=== PATIENT | female | born 1940 | race Caucasian/White ===

== ENCOUNTER 2017-02-04 15:38 | Inpatient (IN) | payer MEDICARE ==
[~2017-02-04] VITALS: Ht 165.1 cm; Wt 59.0 kg
[2017-02-04 17:16] LABS: BASOPHILS 0.2 % (0-2); EOSINOPHILS 0.2 % (0-7); HEMATOCRIT 38.6 % (42.0-54.0); HEMOGLOBIN 13.7 g/dL (13.5-17.5); IMMATURE GRANULOCYTES 1.9 % (0-5); LYMPHOCYTES 12.7 % (15-50); MCH 30.9 pg (26.0-34.0); MCHC 35.5 g/dL (31.0-37.0); MCV 86.9 fL (80.0-100.0); MEAN PLATELET VOLUME 8.9 fL (7.4-10.4); MONOCYTES 13.4 % (2-11); NEUTROPHILS 71.6 % (40-80); PLATELET COUNT 346 10x3/uL (130-400); RBC 4.44 10x6/uL (4.20-6.10); RDW 12.5 % (11.5-14.5); WBC 12.9 10x3/uL (4.8-10.8)
[2017-02-04 17:36] LABS: ALBUMIN 2.7 g/dL (3.4-5.0); ALKALINE PHOSPHATASE 69 U/L (46-116); ALT (SGPT) 16 U/L (10-68); BILIRUBIN - TOTAL 0.88 mg/dL (0.2-1.3); CALC OSMOLALITY 257 mosm/kg (275-300); CALCIUM 9.1 mg/dL (8.5-10.1); CARBON DIOXIDE 27.3 mmol/L (21.0-32.0); CHLORIDE - SERUM 88 mmol/L (98-107); CREATININE - SERUM 0.9 mg/dL (0.6-1.3); GLUCOSE 100 mg/dL (74-106); PROTEIN - SERUM 7.5 g/dL (6.4-8.2); SODIUM 128 mmol/L (136-145); UREA NITROGEN 14 mg/dL (7-18); eGFR NON AFRICAN AMERICAN 87 mL/min (90-120)
[2017-02-04 17:37] LABS: POTASSIUM - SERUM 2.8 mmol/L (3.5-5.1)
--- NOTE | 2017-02-05 00:16 | NUR ---
REC'D TO ROOM 2217 FROM ER DEPT A 76 Y/O W/FE PER SERVICES DR. CANO WITH DX COPD AND PNEUMONIA. SALINE LOCK PATENT RT ARM SITE CLEAR. ASSESSMENT PER ADMIT PACKET. UP AD MEI TO BR VOIDS WELL.
[2017-02-05 01:10] VITALS: BP 121/54; BMI 21.6
[2017-02-05] MEDS ORDERED: PLAVIX75 MG PO (01:22)
[2017-02-05] MEDS ORDERED: BAYER CHEWABLE81 MG PO (01:23)
[2017-02-05] MEDS ORDERED: ZOLOFT100 MG PO (01:23)
[2017-02-05] MEDS ORDERED: METOPROLOL-HCT1 EACH PO (01:24)
[2017-02-05] MEDS ORDERED: ACETAMINOPHEN325 MG PO (01:25)
--- NOTE | 2017-02-05 02:00 | NUR ---
EYES CLOSED RESPIRATIONS WITH EASE AND UNLABORED. O2 ON 2L/M PER NC. HOB UP 30 DEGREES. SR UP X2 CALL LIGHT WITHIN REACH.
--- NOTE | 2017-02-05 03:52 | NUR ---
EYES CLOSED RESPIRATIONS WITH EASE AND UNLABORED. BEDSIDE UPDRAFT GIVEN TONIGHT.
--- NOTE | 2017-02-05 06:29 | NUR ---
DR. CANO HERE TO EVALUATE PATIENT.
[2017-02-05 07:12] LABS: ANION GAP 14.5 mmol/L (8-16); BASOPHILS 0.2 % (0-2); CALCIUM 8.6 mg/dL (8.5-10.1); CARBON DIOXIDE 26.9 mmol/L (21.0-32.0); CREATININE - SERUM 0.8 mg/dL (0.6-1.3); EOSINOPHILS 0.2 % (0-7); HEMATOCRIT 37.5 % (36.0-48.0); HEMOGLOBIN 13.3 g/dL (12-16); IMMATURE GRANULOCYTES 1.7 % (0-5); LYMPHOCYTES 14.7 % (15-50); MCH 31.1 pg (26.0-34.0); MCHC 35.5 g/dL (31.0-37.0); MCV 87.8 fL (80.0-100.0); MEAN PLATELET VOLUME 8.8 fL (7.4-10.4); MONOCYTES 15.3 % (2-11); NEUTROPHILS 67.9 % (40-80); PLATELET COUNT 371 10x3/uL (130-400); RBC 4.27 10x6/uL (4.00-5.40); RDW 12.7 % (11.5-14.5); WBC 9.8 10x3/uL (4.8-10.8)
[2017-02-05 07:13] LABS: POTASSIUM - SERUM 3.4 mmol/L (3.5-5.1)
--- NOTE | 2017-02-05 08:35 | NUR ---
PATIENT RESTING IN THE BED. PATIENT IS AWAKE, ALERT, AND ORIENTED X4. NO COMPLAINTS OF PAIN AT PRESENT TIME. ASSESSMENT COMPLETED. SEE FLOWSHEET FOR ANY DETAILS. SCHEDULED MORNING MEDICATIONS GIVEN TO PATIENT. PATIENT TOLERATED WELL. PATIENT DENIES ANY NEEDS AT PRESENT TIME. CALL LIGHT IN PATIENT'S REACH. WILL MONITOR PATIENT FOR ANY NEEDS.
[2017-02-05 09:07] VITALS: BP 139/67
[2017-02-05 12:51] VITALS: BP 123/78
[2017-02-05 14:04] VITALS: Ht 165.1 cm; Wt 59.0 kg
--- NOTE | 2017-02-05 14:24 | NUR ---
PATIENT RESTING IN BED WITH HER EYES CLOSED. PATIENT AWAKENS EASILY TO VERBAL STIMULI. DAUGHTER AT PATIENT'S BEDSIDE. SCHEDULED SOLU-MEDROL 40 MG IV GIVEN TO PATIENT. PATIENT TOLERATED WELL. PATIENT DENIES ANY NEEDS AT PRESENT TIME. CALL LIGHT IN PATIENT'S REACH. WILL MONITOR PATIENT FOR ANY NEEDS.
--- NOTE | 2017-02-05 16:00 | NUR ---
SCD'S PLACED ON PATIENT'S BILATERAL LOWER EXTREMITIES.
[2017-02-05 17:07] VITALS: BP 125/69
[2017-02-05 20:00] VITALS: BP 98/64
--- NOTE | 2017-02-05 20:00 | NUR ---
ASSESSMENT PER FLOWSHEET. IV PATENT RT FOREARM OF D5NS W/20MEQ KCL INFUSING AT 75CC'S/HR SITE CLEAR. UP WITH HELP TO BR VOIDS WELL. O2 ON 2L/M PER NC.
--- NOTE | 2017-02-05 21:00 | NUR ---
MEDS GIVEN PER MAR.
--- NOTE | 2017-02-05 23:25 | NUR ---
EYES CLOSED RESPIRATIONS WITH EASE AND UNLABORED.
[2017-02-06] VITALS: BP 110/66
--- NOTE | 2017-02-06 02:00 | NUR ---
AWAKE UP WITH HELP TO RY VOIDS WELL ASSISTED BACK TO BED.
[2017-02-06 04:00] VITALS: BP 119/76
--- NOTE | 2017-02-06 04:30 | NUR ---
RESTING QUIETLY DENIES NEEDS.
[2017-02-06 05:15] LABS: BASOPHILS 0.1 % (0-2); EOSINOPHILS 0 % (0-7); HEMATOCRIT 34.8 % (36.0-48.0); HEMOGLOBIN 12.1 g/dL (12-16); IMMATURE GRANULOCYTES 0.9 % (0-5); LYMPHOCYTES 6.6 % (15-50); MCH 30.3 pg (26.0-34.0); MCHC 34.8 g/dL (31.0-37.0); MCV 87.2 fL (80.0-100.0); MEAN PLATELET VOLUME 8.6 fL (7.4-10.4); NEUTROPHILS 84.4 % (40-80); PLATELET COUNT 392 10x3/uL (130-400); RBC 3.99 10x6/uL (4.00-5.40); RDW 12.5 % (11.5-14.5)
[2017-02-06 05:21] LABS: WBC 13.9 10x3/uL (4.8-10.8)
[2017-02-06 05:51] LABS: CALC OSMOLALITY 267 mosm/kg (275-300); CALCIUM 8.5 mg/dL (8.5-10.1); CARBON DIOXIDE 27.5 mmol/L (21.0-32.0); CHLORIDE - SERUM 97 mmol/L (98-107); CREATININE - SERUM 0.7 mg/dL (0.6-1.3); POTASSIUM - SERUM 3.9 mmol/L (3.5-5.1); SODIUM 132 mmol/L (136-145); UREA NITROGEN 10 mg/dL (7-18); eGFR NON AFRICAN AMERICAN 86 mL/min (90-120)
[2017-02-06 06:03] LABS: GLUCOSE 176 mg/dL (74-106)
--- NOTE | 2017-02-06 06:47 | NUR ---
MEDS GIVEN PER MAR. DENIES NEEDS.
--- NOTE | 2017-02-06 07:59 | NUR ---
AWAKE AND ALERT. ORIENTED X3. NO C/O AT THIS TIME. LUNGS ARE DIMINISHED IN LEFT LOWER LOBE AND FAINT CRACKLES NOTED TO RIGHT LOWER LOBES. SKIN IS INTACT WITHOUT REDNESS. IV TO RIGHT FOREARM IS PATNET WITHOUT REDNESS AT INSERTION SITE. SCD'S OFF AT THIS TIME. DENIES NEEDS. REPORTS OCCASSIONALLY PRODUCTIVE COUGH WITH WHITISH SPUTUM.
[2017-02-06 08:48] VITALS: BP 112/73
--- NOTE | 2017-02-06 10:30 | NUR ---
UP TO SHOWER WITH SET UP ASSISTANCE. NO C/O AT THIS TIME.
--- NOTE | 2017-02-06 12:30 | NUR ---
REGULAR LUNCH TRAY SERVED IN ROOM. FEEDS SELF WITHOUT C/O DISCOMFORT.
[2017-02-06 13:11] VITALS: BP 100/71
--- NOTE | 2017-02-06 14:00 | NUR ---
AMBULATED IN HALLWAY WITH FAMILY. NO INCREASED SOB NOTED WITH ACTIVITY.
--- NOTE | 2017-02-06 16:00 | NUR ---
REQUESTED AND GIVEN 650MG TYLENOL PO FOR C/O HEADACHE. WILL MONITOR.
[2017-02-06 16:21] VITALS: BP 122/74
--- NOTE | 2017-02-06 18:35 | NUR ---
ATE ALL OF SUPPER SHE WANTED. DENIES NEEDS. NO CHANGES NOTED.
[2017-02-06 20:00] VITALS: BP 128/85
--- NOTE | 2017-02-06 21:10 | NUR ---
REST IN BED AND WATCH TV.
--- NOTE | 2017-02-06 23:33 | NUR ---
LYING ON LEFT SIDE, HOB 20 DEGREE, CALL LIGHT IN REACH.
--- NOTE | 2017-02-07 01:30 | NUR ---
REST IN BED, CALL LIGHT IN REACH.
--- NOTE | 2017-02-07 02:40 | NUR ---
ASSESSED, PT IS ASLEEP CURLED UP ON SIDE. RESPIRATIONS EASY AND NO DISTRESS NOTED. THE BED IS LOW, RAILS UP X'S 2 WITH THE CALL LIGHT AT HAND.
--- NOTE | 2017-02-07 04:35 | NUR ---
REST IN BED, CALL LIGHT IN REACH.
--- NOTE | 2017-02-07 06:05 | NUR ---
IV INFILTRATED, RESTART IV, GOOD BLOOD RETURN.PT TOLERATED WELL.
[2017-02-07 06:18] LABS: BASOPHILS 0.1 % (0-2); EOSINOPHILS 0 % (0-7); HEMOGLOBIN 11.9 g/dL (12-16); IMMATURE GRANULOCYTES 0.9 % (0-5); LYMPHOCYTES 6.4 % (15-50); MCH 30.7 pg (26.0-34.0); MEAN PLATELET VOLUME 8.6 fL (7.4-10.4); MONOCYTES 5.9 % (2-11); NEUTROPHILS 86.7 % (40-80); PLATELET COUNT 393 10x3/uL (130-400); RBC 3.87 10x6/uL (4.00-5.40); RDW 13.1 % (11.5-14.5); WBC 16.7 10x3/uL (4.8-10.8)
[2017-02-07 06:22] LABS: MCV 90.4 fL (80.0-100.0)
[2017-02-07 06:33] LABS: ANION GAP 14.1 mmol/L (8-16); CALCIUM 8.7 mg/dL (8.5-10.1); CARBON DIOXIDE 25.5 mmol/L (21.0-32.0); CREATININE - SERUM 0.8 mg/dL (0.6-1.3); POTASSIUM - SERUM 4.6 mmol/L (3.5-5.1)
--- NOTE | 2017-02-07 08:45 | NUR ---
AWAKE AND ALERT. ORIENTED X3. LUNGS ARE CLEAR THIS AM WITH FAINT CRACKLES, NON PRODUCTIVE COUGH NOTED. SKIN IS INTACT WITHOUT REDNESS. IV TO LEFT FOREARM IS PATNET WITHOUT REDNESS AT ISNERTION SITE. DENIES NEEDS. SITTING UP ON SIDE OF BED EATING BREAKFAST.
[2017-02-07 09:38] VITALS: BP 123/66
--- NOTE | 2017-02-07 10:00 | NUR ---
ATE MOST OF BREAKFAST SITTING UP ON SIDE OF BED.
[2017-02-07] MEDS ORDERED: IPRAT-ALBUT 0.5-3 ML INH (10:20)
[2017-02-07] MEDS ORDERED: LOPRESSOR25 MG PO (10:20)
[2017-02-07] MEDS ORDERED: LEVAQUIN750 MG PO (10:21)
[2017-02-07] MEDS ORDERED: STERAPRED DS 1210 MG PO (10:21)
[2017-02-07] MEDS ORDERED: COMBIVENT RESPIM4 GM INH (10:23)
[2017-02-07 13:41] VITALS: BP 138/70
--- NOTE | 2017-02-07 16:35 | NUR ---
DISCHARGED TO HOME AMBULATORY WITH FAMILY. DISCHARGE INSTRUCTIONS GIVEN BOTH VERBALLY AND WRITTEN. ALL QUESTIONS ANSWERED. PATIENT VERBALIZED UNDERSTANDING OF SAME. NEEDED PRESCRIPTIONS ESCRIBED TO PHARMACY OF CHOICE. ALL BELONGINGS WITH PATIENT.
--- NOTE | 2017-02-07 19:11 | NUR ---
LATE ENTRY 1230 PATIENT FOR DISCHARGE TO HOME. WILL BE RETURNING TO HER OWN HOME IN [place], [place]. ADDRESS CORRECTED [address] PHONE NUMBER CORRECTED- [phone]. FAXED CORRECTIONS TO ADMISSION. PATIENT HAD NEBULIZER ORDERED. HAS NO PREFERRED PROVIDER. REID HAD A CALL ALREADY TO [facility], [place]. SPOKE WITH MRASHA. HE [place] [facility] [place] FA[place] MD ORDER, CORRECTED FACE SHEET AND H/P. NEB MEDICATIONS OBTAINED FOR 3 DAYS FROM PHARMACY UNTIL CAN ORDER PATIENT'S MEDICATIONS ON THURSDAY. [place] MARSHA LOUIE, DELIVERED THE NEBULIZER TO THE BEDSIDE THIS LATE PM. SHADI RODRIGUEZ PROVIDED TRANSPORTATION TO HOME.
--- NOTE | 2017-02-09 06:51 | HP ---
PATIENT: JIMI ADLER MEDICAL RECORD: [id number] ACCOUNT: [id number] LOCATION:D.[id number] : 38 ADMISSION DATE: 02/04/17 HISTORY AND PHYSICAL EXAMINATION DATE OF ADMISSION: 02/04/2017 CHIEF COMPLAINT: Shortness of breath, fever, flu-like symptoms. HISTORY OF PRESENT ILLNESS: A 76-year-old female who presented to the Emergency Room brought by her daughter. Apparently, the patient had been a patient of Dr. Roper, who apparently is retiring. She had also been seen by Dr. Awad in [place], apparently was told she had the flu earlier this week, but if her condition worsened to present to the Emergency Room. She presented to the Emergency Room having no PCP. She is admitted to the service on unassigned medicine. PAST MEDICAL HISTORY: Her past history is significant. She has been a long-time smoker. She has had carotid endarterectomy on the left. She has had IA with stents placed, hyperlipidemia, hypertension, depression. She is G3, P3. SOCIAL HISTORY: The patient was born and raised in [place]. She currently lives with her daughter in [place]. She is a . HABITS: The patient states she is a one-half to one pack per day smoker most of her adult life. She denies any current ethanol use or abuse, but she states in the past she had been a drinker. She currently is unemployed. MEDICATIONS: Include Cipro 500 mg p.o. b.i.d., Plavix 75 mg once a day, aspirin 81 mg once a day, Zoloft 100 mg once a day, Flexeril 10 mg p.r.n., Lopressor/hydrochlorothiazide 100/25 once daily. ALLERGIES: HER ALLERGIES ARE NUMEROUS. STANAM INHIBITORS, ALEVE, LYRICA, PENICILLIN, SULFA, TETRACYCLINE, AND CODEINE. REVIEW OF SYSTEMS: CONSTITUTIONAL: She denies any headaches, seizures, or syncope. She denies change in visual or auditory acuity. PULMONARY: She does report having cough and congestion. CARDIOVASCULAR: She has had no chest pain, palpitation, PND, orthopnea. GASTROINTESTINAL: No chronic nausea, vomiting, melena, or hematochezia. GENITOURINARY: No urgency, frequency, or dysuria. PHYSICAL EXAMINATION: VITAL SIGNS: Her weight is 130 pounds, BMI is 21.6, temperature 99, pulse was 114, respirations 20, blood pressure 106/78, O2 sat was 92% on room air. HEENT: Her head is normocephalic. No lesions. Ears: TMs clear. Eyes: Pupils equal, round, reactive to light. Her extraocular movements are intact. Her nasal cavity, oral cavity, oropharynx clear. NECK: Supple. There is no adenopathy. HEART: Tachycardic. LUNGS: She has some bibasilar rales. Some minimal end-expiratory wheezes. ABDOMEN: Soft. Bowel sounds positive. EXTREMITIES: Lower extremities have no edema. HISTORY AND PHYSICAL [id number] JIMI ADLER IMAGING: The patient had a chest x-ray. Chest x-ray showed minimal patchy air disease in the right lung base, which might develop into pneumonia. Emphysematous changes were noted as well. LABORATORY DATA: She had a white count of 12.9, hemoglobin of 13.7, hematocrit of 38.6, platelets are 346. She has a sodium of 128, potassium 2.8, chloride is low at 88, BUN is 14, creatinine is 0.9, and blood sugar is 87. ASSESSMENT: Chronic obstructive pulmonary disease exacerbation, possible pneumonia, hyponatremia, hypokalemia, history of hypertension, depression, arteriosclerotic heart disease, history of left carotid endarterectomy. PLAN: The patient will be admitted. She will be given updraft therapy as well as O2 supplementation. Sputum cultures and blood cultures will be obtained. The patient placed on Levaquin 750 mg IV every 24 hours. Also, we will start her on albuterol and Atrovent updrafts every 4 hours, Anoro 1 puff a day, Solu-Medrol 60 mg every 8 hours. We will continue to evaluate. TRANSINT:[id number] Voice Confirmation ID: [id number] DOCUMENT ID: [id number] DARLENE CANO MD at 0651 CC: [id number] DICTATION DATE: 02/05/17 0643 HELPDESK TECHNICIAN: 02/05/17 0757 DIS IN 02/07/17 [facility] [address] [place] [address]
--- NOTE | 2017-02-09 13:47 | NUR ---
TC TO PATIENT REGARDING NEBULIZER AND IF SHE HAD ANY QUESTIONS OR NEEDS. SPOKE WITH HER DAUGHTER, SHADI. SHE NEEDED THE LOCAL PHONE NUMBER FOR [facility]. GAVE HER THE PHONE NUMBER. TC TO MICHAEL, THE BORING MACHINE OPERATOR HORIZONTAL, TO FOLLOW UP ON REFERRAL.
== END 2017-02-07 16:36 | disposition home or self-care (01) | DRG 190 ==
LOC: D.ER 15:38 → D.ICU 19:40 → D.MS 19:40 → EDSEX 19:40 → D.MS 02-07 16:36
PROVIDERS: Emergency Medicine; Family Medicine; ADMIT Family Medicine
DX: J43.9 Emphysema, unspecified (principal); J18.9 Pneumonia, unspecified organism; E87.1 Hypo-osmolality and hyponatremia; E87.6 Hypokalemia; I10 Essential (primary) hypertension; F32.9 Major depressive disorder, single episode, unspecified; I25.10 Atherosclerotic heart disease of native coronary artery without angina pectoris; F17.200 Nicotine dependence, unspecified, uncomplicated

== ENCOUNTER → 2017-05-26 17:34 | Outpatient (CLI) | payer MEDICARE ==
[2017-02-05 14:04] VITALS: BMI 21.6
[~2017-05-26 17:34] MED LIST: ACETAMINOPHEN325 MG PO; BAYER CHEWABLE81 MG PO; COMBIVENT RESPIM4 GM INH; IPRAT-ALBUT 0.5-3 ML INH; LEVAQUIN750 MG PO; LOPRESSOR25 MG PO; METOPROLOL-HCT1 EACH PO; PLAVIX75 MG PO; STERAPRED DS 1210 MG PO; ZOLOFT100 MG PO
== END | disposition home or self-care (01) ==
LOC: D.MAMMO 15:00
DX: Z12.31 Encounter for screening mammogram for malignant neoplasm of breast (principal)

== ENCOUNTER → 2017-07-31 22:00 | Outpatient (CLI) | payer MEDICARE ==
[2017-02-05 14:04] VITALS: BMI 21.6
== END | disposition home or self-care (01) ==
LOC: D.MAMMO 10:30
DX: R92.8 Other abnormal and inconclusive findings on diagnostic imaging of breast (principal)

== ENCOUNTER → 2017-08-14 06:03 | Outpatient (CLI) | payer MEDICARE ==
[2017-02-05 14:04] VITALS: BMI 21.6
== END | disposition home or self-care (01) ==
LOC: D.MAMMO 06:03 → D.US 09:00
DX: R92.8 Other abnormal and inconclusive findings on diagnostic imaging of breast (principal)

== ENCOUNTER 2017-09-29 06:08 | Day surgery (SDC) | payer MEDICARE ==
[~2017-09-29] VITALS: Ht 165.1 cm; Wt 59.5 kg
--- NOTE | ~2017-09-29 | OP ---
PATIENT NAME: JIMI ADLER MEDICAL RECORD: [id number] :38 LOCATION:[facility] ADMISSION DATE: SURGEON: SILVIO SOLANO MD DATE OF OPERATION: 09/29/2017 PREOPERATIVE DIAGNOSES: 1. Invasive ductal carcinoma of the right breast. 2. Ductal carcinoma in situ of the left breast. 3. Hypertension. 4. Chronic obstructive pulmonary disease. 5. Coronary artery disease. POSTOPERATIVE DIAGNOSES: 1. Invasive ductal carcinoma of the right breast. 2. Ductal carcinoma in situ of the left breast. 3. Hypertension. 4. Chronic obstructive pulmonary disease. 5. Coronary artery disease. PROCEDURES: 1. Bilateral simple mastectomies. 2. Right sentinel lymph node biopsy. SURGEON: Silvio Solano MD EXTRACTOR AND WRINGER OPERATOR: Betsy Young APRN REPORT OF PROCEDURE: The patient's chest was prepped and draped in sterile fashion. An ovoid incision was made around the right nipple areolar complex in a transverse fashion. Electrocautery was used to dissect through the subcutaneous tissues, elevating flaps in all directions. Once the breast was released from the skin in all directions, we continued our dissection up to the clavicle, to the mid sternum, down to the rectus muscles and laterally to the axilla. We then elevated the breast off of the pectoral tissues. Once this was done, then the breast was inspected and sent off for permanent specimen. We then approached the patient's right axilla. A sentinel lymph node was removed times 1, it had a reading of a 4500. The remainder of the axilla had no signs of any elevated radio nucleotide. The patient's right chest was irrigated out with sterile water. A 10 flat MIRANDA drains were then inserted in the right chest times [address] with 3-0 nylons. We then approached the left chest. An ovoid incision was made in a transverse fashion around the left nipple areolar complex. The breast was elevated off of the patient's skin flaps in all directions. We continued our dissection superiorly to the clavicle, medially to the mid sternum, inferiorly to the rectus and laterally to the axilla. Once this was extended out in all directions, then the breast was elevated off of the patient's pectoral muscle. This was then sent off for permanent specimen. We inspected the area and assured there was no bleeding and any that was found was treated with either electrocautery or with suture ligation. The wound was then irrigated out with sterile water. A 10 flat MIRANDA drains times 2 were inserted in the subcutaneous tissues, then placed over the chest times 2. These were sutured into place with 3-0 nylons. We then reapproximated the subcutaneous tissues with multiple interrupted 3-0 Vicryls and the skin was closed with codie. COMPLICATIONS: None. OPERATIVE REPORT [id number] JIMI ADLER CONDITION: Stable. ANESTHESIA: General endotracheal. BLOOD LOSS: 100 mL. TRANSINT:[id number] Voice Confirmation ID: [id number] DOCUMENT ID: [id number] SILVIO SOLANO MD at 1418 CC: JACK PANCHAL M.D., KAREN BONDS MD and DARLENE CANO [id number] DICTATION DATE: 09/29/17 1419 HEALTH CARE FACILITY ADMINISTRATOR: 09/29/17 1512 [facility] 09/30/[address] [address]
[~2017-09-29 06:08] MED LIST changes: +BUPROPION HCL150 M1 PO; +COZAAR100 MG PO; +HYDROCHLOROTH12.5 M1 PO; +LEXAPRO10 MG
[2017-09-29 06:28] LABS: BASOPHILS 0.6 % (0-2); EOSINOPHILS 3.7 % (0-7); HEMOGLOBIN 14.5 g/dL (12-16); IMMATURE GRANULOCYTES 0.2 % (0-5); LYMPHOCYTES 40.3 % (15-50); MCH 30.1 pg (26.0-34.0); MCHC 34.5 g/dL (31.0-37.0); MCV 87.1 fL (80.0-100.0); MEAN PLATELET VOLUME 9.2 fL (7.4-10.4); MONOCYTES 13.6 % (2-11); NEUTROPHILS 41.6 % (40-80); RBC 4.82 10x6/uL (4.00-5.40); RDW 14.1 % (11.5-14.5); WBC 6.3 10x3/uL (4.8-10.8)
[2017-09-29 06:43] LABS: PLATELET COUNT 212 10x3/uL (130-400)
[2017-09-29] MEDS ORDERED: LOPRESSOR25 MG PO (09:39)
[2017-09-29] MEDS ORDERED: BUPROPION HCL150 M1 PO (09:40)
[2017-09-29 09:41] VITALS: BMI 21.8
[2017-09-29 16:08] VITALS: BP 120/61
[2017-09-29 17:19] VITALS: Ht 165.1 cm; Wt 59.5 kg
[2017-09-29 18:00] VITALS: BP 122/68
[2017-09-29 19:09] VITALS: BP 131/64
[2017-09-29 22:10] VITALS: BP 139/66
[2017-09-30 03:34] VITALS: BP 132/67
[2017-09-30 06:32] LABS: BASOPHILS 0.2 % (0-2); EOSINOPHILS 0.1 % (0-7); HEMATOCRIT 36.2 % (36.0-48.0); HEMOGLOBIN 11.9 g/dL (12-16); IMMATURE GRANULOCYTES 0.1 % (0-5); LYMPHOCYTES 23.1 % (15-50); MCHC 32.9 g/dL (31.0-37.0); MCV 88.3 fL (80.0-100.0); MEAN PLATELET VOLUME 9.6 fL (7.4-10.4); MONOCYTES 14.7 % (2-11); NEUTROPHILS 61.8 % (40-80); PLATELET COUNT 192 10x3/uL (130-400); RDW 14.1 % (11.5-14.5)
[2017-09-30 06:35] LABS: WBC 8.2 10x3/uL (4.8-10.8)
[2017-09-30 08:05] VITALS: BP 146/63
[2017-09-30 11:50] VITALS: BP 141/81
[2017-09-30] MEDS ORDERED: DILAUDID2 MG PO (13:16)
== END 2017-09-30 14:45 | disposition home or self-care (01) ==
LOC: D.PAN 06:08 → D.LD 06:08 → D.NM 07:30 → D.PAN 07:30 → D.LD 15:30 → D.SDCHOLD 18:49 → D.LD 18:50 → D.PAN 09-30 14:45
PROVIDERS: Anesthesiology; Surgery
DX: C50.911 Malignant neoplasm of unspecified site of right female breast (principal); D05.12 Intraductal carcinoma in situ of left breast; I10 Essential (primary) hypertension; J44.9 Chronic obstructive pulmonary disease, unspecified; I25.10 Atherosclerotic heart disease of native coronary artery without angina pectoris; Z01.812 Encounter for preprocedural laboratory examination

== ENCOUNTER → 2017-12-02 10:16 | Outpatient (CLI) | payer MEDICARE ==
[2017-09-29 17:19] VITALS: BMI 21.8
[~2017-12-02 10:16] MED LIST changes: +DILAUDID2 MG PO
== END | disposition home or self-care (01) ==
LOC: D.CT 10:16
DX: I65.23 Occlusion and stenosis of bilateral carotid arteries (principal)

== ENCOUNTER 2018-03-04 07:30 | Inpatient (IN) | payer MEDICARE ==
[2018-03-01 15:33] LABS: APTT 26.2 SECONDS (22.8-39.4); INR 0.93 (0.85-1.17)
[2018-03-01 15:35] LABS: APPEARANCE CLEAR (CLEAR); BILIRUBIN NEGATIVE (NEGATIVE); COLOR YELLOW (YELLOW); GLUCOSE NEGATIVE (NEGATIVE); KETONE NEGATIVE (NEGATIVE); NITRITE NEGATIVE (NEGATIVE); PROTEIN NEGATIVE (NEGATIVE); UROBILINOGEN NORMAL (NORMAL)
[2018-03-01 15:38] LABS: ALBUMIN 3.7 g/dL (3.4-5.0); ANION GAP 12.6 mmol/L (8-16); BILIRUBIN - TOTAL 0.54 mg/dL (0.2-1.3); CALCIUM 8.7 mg/dL (8.5-10.1); CARBON DIOXIDE 29.3 mmol/L (21.0-32.0); POTASSIUM - SERUM 3.9 mmol/L (3.5-5.1); PROTEIN - SERUM 7.7 g/dL (6.4-8.2)
[2018-03-01 16:45] LABS: HEMATOCRIT 41.2 % (36.0-48.0); HEMOGLOBIN 13.6 g/dL (12-16); MCH 27.6 pg (26.0-34.0); MCV 83.7 fL (80.0-100.0); MEAN PLATELET VOLUME 9.7 fL (7.4-10.4); RBC 4.92 10x6/uL (4.00-5.40); RDW 15.6 % (11.5-14.5); WBC 6.1 10x3/uL (4.8-10.8)
[2018-03-04] VITALS (29 sets, daily range): BP systolic 110–141; BP diastolic 43–88; BMI 22.6
[~2018-03-04] VITALS: Ht 165.1 cm; Wt 59.1 kg
--- NOTE | ~2018-03-04 | MORECARE ---
CASE MANAGEMENT DISCHARGE SUMMARY PATIENT: JIMI ADLER UNIT: [id number] ADM DATE: 03/04/18 AGE: 77 : 39 SEX: F ROOM/BED: D[facility] AUTHOR: [place] PHYSICIAN: REFERRING PHYSICIAN: ELENI MCLEAN MD DATE OF SERVICE: 03/05/18 Discharge Plan Patient Name: JIMI ADLER [facility] [facility] 1940 Planned Disposition: Home Anticipated Discharge Date: Discharge Date: Expected LOS: Initial Reviewer: [email or web address] Initial Review Date: 03/05/2018 Generated: 03/05/18 5:24 pm DCPIA - Discharge Planning Initial Assessment Updated by [email or web address]: Irais Aguilar on 03/05/18 4:23 pm * Is the patient Alert and Oriented? Yes * How many steps to enter\exit or inside your home? * PCP RACHAEL * Pharmacy [facility] * Preadmission Environment Home Alone * ADLs Independent * Other Equipment WALKER, CANE, W/C, BSC * List name and contact numbers for known caregivers / representatives who currently or will assist patient after discharge: SHADI Cardona [facility] -[phone] * Verbal permission to speak to the caregivers and representatives has been obtained from the patient. Yes * Community resources currently utilized None * Additional services required to return to the preadmission environment? No * Can the patient safely return to the preadmission environment? Yes * Has this patient been hospitalized within the prior 30 days at any hospital? No Patient Name: JIMI ADLER Page 11437 at 1624 All edits/amendments must be made on the electronic document DICTATION DATE: 03/05/181622 DIRECTOR OF RESERVATIONS: WADE 03/05/181622 RPT#: [id number] DC DATE: STATUS: ADM IN [facility] [address] [place] [address] END OF REPORT
--- NOTE | ~2018-03-04 | HP ---
PATIENT: JIMI ADLER MEDICAL RECORD: [id number] ACCOUNT: [id number] LOCATION:[facility] : 38 ADMISSION DATE: 03/04/18 PCP: TED MCLEAN MD HISTORY AND PHYSICAL EXAMINATION JIMI Keller (77yo, F) ID# [id number]. Date/Time02/24/2018 01:20RAOAV15 1940Service Dept.[facility]_[place] [facility] ClinicProviderDANIQUETA MCLEAN MDInsuranceMed Primary: [place] Insurance # : [id number] Referring Provider Name : DARLENE CANO Employer Name : UNKNOWN Med Secondary: AARP Insurance # : [id number] Employer Name : RETIRED Prescription: [employer] - This member could not be found in the payer's files. Please verify coverage and all member demographic information. Chief Complaint Carotid stenosis R carotid stenosis Patient's Care Team Referring Provider (): DARLENE CANO: [address] [place] [address], , Medical Oncologist: KAREN BONDS MD: [address] [facility] [address], , General Surgeon: SILVIO ADAMS MD: [address] [place] [address], [place] [address], , Patient's Pharmacies [facility] (ERX): [address], [place] [address], , Vitals BP:102/74 sitting L arm 02/24/2018 01:24 pm 190/94 sitting R arm 02/24/2018 01:27 pmBP Cuff Size:adult 02/24/2018 01:24 pm adult 02/24/2018 01:27 pmHR:60,skips 02/24/2018 01:24 pmHt:5 ft 5 in 02/24/2018 01:16 pmWt:129 lbs 02/24/2018 01:25 pmNotes:some dizziness and lightheadedness 02/24/2018 01:27 pmBMI:21.5 02/24/2018 01:25 pmAllergies Reviewed Allergies CODEINELYRICANAPROXENPENICILLINSPREGABALINTETRACYCLINEMedications Reviewed Medications Aspir-81 81 mg tablet,delayed release Take 1 tablet(s) every day by oral route.02/23/18 enteredKatopal WilsonbuPROPion HCl XL 150 mg 24 hr tablet, extended release TAKE 1 TABLET BY MOUTH EVERY DAY THANK YOU02/17/18 filledsurescriptsescitalopram 10 mg tablet TAKE 1 TABLET BY MOUTH EVERY DAY THANK YOU02/17/18 filledsurescriptshydroCHLOROthia zide 12.5 mg capsule TAKE 1 CAPSULE BY MOUTH EVERY DAY THANK YOU02/17/18 nefxgiyrgadsfnngzwkujuffjo11/10 /18 Bebe Adams MDletrozole 2.5 mg tablet TAKE 1 TABLET BY MOUTH EVERY DAY THANK YOU02/17/18 filledsurescriptsmetoprolol succinate ER 25 mg capsule sprinkle, ext. release 24 hr Take by oral route.09/09/17 Maverick Herronmetoprolol succinate ER 25 mg tablet,extended release 24 hr TAKE 1 TABLET BY MOUTH EVERY DAY THANK YOU02/17/18 filledsurescriptsPlavix 75 mg tablet Take 1 tablet(s) every day by oral route.02/23/18 [facility] Wilsonpotassium chloride ER 10 mEq tablet,extended release HISTORY AND PHYSICAL [id number] JIMI ADLER TAKE 1 TABLET BY MOUTH EVERY DAY THANK YOU02/17/18 filledsurescriptsrosuvastatin 10 mg tablet TAKE 1 TABLET BY MOUTH EVERY DAY THANK YOU02/17/18 filledsurescriptstamoxifen 20 mg tablet TAKE 1 TABLET BY MOUTH EVERY DAY THANK YOU02/18/18 filledsurescriptstemazepam 15 mg capsule TAKE 1 CAPSULE BY MOUTH ONCE daily at bedtime NEEDED THANK YOU02/17/18 filledsurescriptsProblems Reviewed Problems Primary malignant neoplasm of female breast - Onset: 12/30/2017 Intraductal carcinoma in situ of breast - Onset: 12/30/2017 Hypertensive disorder - Onset: 09/09/2017 Myocardial infarction - Onset: 09/09/2017 Coronary arteriosclerosis - Onset: 09/22/2017 Carotid artery stenosis - Onset: 02/23/2018, Right Chronic obstructive lung disease - Onset: 09/09/2017 Arthritis - Onset: 09/09/2017 Fibromyalgia - Onset: 09/09/2017 Family History Reviewed Family History Father- Cerebrovascular accident ( age: 71)Paternal Grandmother- Heart disease ( age: 84)Paternal Aunt- Malignant tumor of breast - Malignant tumor of breastSocial History Reviewed Social History General Marital status: Smoking Status: Current every day smoker Smoker (1/2 PPD) Surgical History Reviewed Surgical History Other - cardiac stents - Other - Neck, Broken Rib - 1968 Simple mastectomy - 09/29/2017 - BILATERAL Carotid Endarterectomy - 10/31/2014 stents x 4 coronary by Myra [address] gunn 2011 [employer]ANT History (not configured) Obstetric History Reviewed Obstetric History Past Medical History Reviewed Past Medical History High Blood Pressure: Y Documents for Discussion N/A Screening None recorded. HPI Cerebral Vascular Disease Reported by patient. HISTORY AND PHYSICAL [id number] JIMI ADLER Quality: weakness; dizziness Duration: has noted for months Associated Symptoms: no headache; no nausea; no vomiting; no tinnitus; no difficulty speaking; no lethargy; no fever; no chills; no palpitations; no syncope; no loss of consciousness asymptomatic worsening right carotid stenosis, history of left carotid endarte[place] [address] Chaves, history of left subclavian injury after trauma in 1968 and history of left subclavian stent by Dr. Gunn in 2011, occluded. She denies left arm claudication. 100 mm gradient right to left arm. ROS Additionally reports: as reviewed in the chart with the patient and her daughter ROS as noted in the HPI Physical Exam Patient is a 77-year-old female. Constitutional: General Appearance well nourished and developed and healthy-appearing. Level of Distress NAD. Ambulation ambulating normally. Ears, Nose, Throat: Ears grossly normal hearing. Oropharynx: moist mucous membranes. Cardiovascular: Apical Impulse not displaced or no thrill. Heart Auscultation no murmurs, rubs, or gallops and RRR. Arterial Pulses no palpable left brachial or radial pulse. Edema no edema or varicosities. Lungs: Repiratory Effort no dyspnea. Percussion no hyperresonance or dulln ess or flatness. Auscultation no wheezing, rhonchi, or rales / crackles and breathing sounds normal and good air movement. Abdomen: Bowl Sounds normal. Inspection and Palpation no tenderness, guarding, or masses and soft and non-distended. Liver non-tende r and no hepatomegaly. Spleen non-tender and no splenomegaly. Musculoskeletal System: Gait And Stance normal gait and stance. Digits and Nails normal nails and no cyanosis. Joints, Bones, and Muscles normal strength and movement of all extremities. Neurologic: Cranial Nerves grossly intact. Sensation grossly intact. Lymph Nodes: Lymph Nodes no cervical LAD or supraclavicular LAD. Eyes: Lids and Conjunctivae no discharge or pallor and non-injected. Pupils PERRLA. EOM EOMI. Sclera non-icteric. Neck: Neck no masses, enlarged lymph nodes, or carotid bruits and supple and trachea midline; healed left carotid endarterectomy scar and healed scar in the left supraclavicular region. Thyroid no enlargement or nodules and non-tender. Skin: Inspection and Palpation no rash, lesions, ulcers, or jaundice. Assessment / Plan 1. Carotid artery stenosis - Right I65.29: Occlusion and stenosis of unspecified carotid artery CAROTID STENOSIS: CARE INSTRUCTIONS 2. Subclavian artery stenosis I70.8: Atherosclerosis of other arteries HISTORY AND PHYSICAL [id number] JIMI ADLER Discussion Notes right carotid endarterectomy for asymptomatic but progressive carotid stenosis. We discussed the rationale for surgery, the alternatives, benefits, the risks. The patient gives consent Return to Office Ted MCLEAN MD for Surgery at [facility]_SURGERY SCHEDULE on 03/04/2018 at 07:30 AM Silvio Adams MD for Office Visit 15 at [facility] [place] on 06/30/2018 at 02:00 PM TED MCLEAN MD at 0740 CC: [id number] DICTATION DATE: 02/24/18 1310 [address] 1 THROUGH 5 TEACHER: WADE 03/02/18 0951 PRE [address] [place] [id number] [place] [id number]
--- NOTE | ~2018-03-04 | MORECARE ---
CASE MANAGEMENT DISCHARGE SUMMARY PATIENT: JIMI ADLER UNIT: [id number] ADM DATE: 03/04/18 AGE: 77 : 38 SEX: F ROOM/BED: D[facility] AUTHOR: BERTHA,DOC PHYSICIAN: REFERRING PHYSICIAN: ELENI MCLEAN MD DATE OF SERVICE: 03/05/18 Discharge Plan Patient Name: JIMI ADLER Facility: [facility]:[place] : 1940 Planned Disposition: Home Anticipated Discharge Date: Discharge Date: Expected LOS: Initial Reviewer: [email or web address] Initial Review Date: 03/05/2018 Generated: 03/05/18 5:31 pm Comments DCP- Discharge Planning Updated by [email or web address]: Irais Aguilar on 03/05/18 3:[address] Patient Name: JIMI ADLER Admission Status: Elective Accout number: [id number] Admission Date: 03-04-2018 : 1940 Admission Diagnosis: Attending: ELENI MCLEAN Current LOS: 1 Anticipated DC Date: Planned Disposition: Home Primary Insurance: MEDICARE A & B Discharge Planning Comments: CM met with patient and daughter at bedside. Patient states she plans on returning home after discharge. Patient denies any discharge needs at this time. CM will continue to follow assist with discharge planning / needs. IMM explained and served 03/05/18 @ 1613. Ecommerce Marketing Specialist: Irais Aguilar DCPIA - Discharge Planning Initial Assessment Updated by [email or web address]: Irais Aguilar on 03/05/18 4:23 pm * Is the patient Alert and Oriented? Yes * How many steps to enter\exit or inside your home? * PCP RACHAEL * Pharmacy [facility] * Preadmission Environment Home Alone * ADLs Independent * Other Equipment WALKER, CANE, W/C, BSC * List name and contact numbers for known caregivers / representatives who currently or will assist patient after discharge: SHADI RODRIGUEZ - DAUGHTER -[phone] * Verbal permission to speak to the caregivers and representatives has been obtained from the patient. Yes * Community resources currently utilized None * Additional services required to return to the preadmission environment? No * Can the patient safely return to the preadmission environment? Yes * Has this patient been hospitalized within the prior 30 days at any hospital? No Coverage Notice Reviewer: [id number] Brendan Aguilar Notice Issued Date-Time: 03/05/2018 16:13 Notice Type: IM Discharge Notice Notice Delivered To: Patient Relationship to Patient: Self Nut Tapper Name: Delivery Method: HAND - Hand Delivered Marlyn Days: Prior Verbal Notification: Recipient Understood Notice: Yes Recipient Signature: Yes Med Rec Note Co-signed by Attending: Coverage Notice Comment: Last DP export: 03/05/18 3:24 Patient Name: JIMI ADLER Page [id number] at 1631 All edits/amendments must be made on the electronic document DICTATION DATE: 03/05/18 163 MAGNETIC RESONANCE TECHNOLOGIST: WADE 03/05/18 1630 RPT#: [id number] DC DATE: STATUS: ADM IN [facility] [address] [place] [address] END OF REPORT
--- NOTE | ~2018-03-04 | OP ---
PATIENT NAME: JIMI ADLER MEDICAL RECORD: [id number] :[birth year] LOCATION:.[facility] D.CV03 ADMISSION DATE:03/04/18 SURGEON: TED MCLEAN MD DATE OF OPERATION: 03/04/2018 SURGEON: Ted Mclean MD UNIVERSITY INTERN: ANTHONY Martell OPERATION PERFORMED: Right carotid endarterectomy. PREOPERATIVE DIAGNOSIS: Right carotid stenosis, progressive, asymptomatic. POSTOPERATIVE DIAGNOSIS: Right carotid stenosis, progressive, asymptomatic. ANESTHESIA: General endotracheal anesthesia. ESTIMATED BLOOD LOSS: 20 cc. COMPLICATIONS: None. SPECIMENS: Plaque. CONDITION: Stable. DISPOSITION: CV ICU. OPERATIVE FINDINGS: 1. Calcified plaque in the carotid bulb and proximal internal carotid artery that feathered well distally. A CorMatrix patch was used. 2. Neurologically intact to CV ICU. OPERATIVE INDICATION: Progressive right internal carotid artery stenosis. DESCRIPTION OF PROCEDURE: The patient was brought to the operating suite. General anesthesia was obtained. An oblique incision was made on the neck below the platysma. Flaps were created and the common carotid was dissected out and encircled. The external carotid and thyroid branch were dissected out and encircled with vessel loops. Internal carotid artery was dissected out distally to a relatively soft portion of the artery. Heparin was given. After the heparin had circulated, the Bulldog clamp was used for back bleeding on the internal carotid, inflow clamp on the common carotid and controlled external carotid and thyroid branch with vessel loops. EEG was monitored for 2 minutes without change. Cerebral oximetry was also monitored and blood pressure was maintained in a relatively normal to increased range during the cross clamp. Arteriotomy was begun. The common carotid artery taken out to the region of dense calcification into relatively normal region of the internal carotid. Endarterectomy was begun by dividing the plaque of the common carotid artery with an eversion endarterectomy of the external carotid and the plaque feathered well distally. Thorough irrigation was undertaken. All bits of loose debris were removed. The CorMatrix patch was fashioned to the appropriate size and sutured along the edge of the arteriotomy. Prior to completing the anastomosis, backbleeding was allowed from all 3 major vessels and then again thorough irrigation of the endarterectomy bed. Anastomosis was completed and flow restored first to the external carotid and then to the internal carotid. OPERATIVE REPORT [id number] JIMI ADLER Interrupted patch sutures were used for hemostasis. Protamine was given. Thorough irrigation was undertaken and hemostasis was assured. A drain was placed through a separate stab wound. The wound was then closed in 3 layers including Dermabond to the skin. Anesthesia reversed. The patient neurologically intact to CV ICU. TRANSINT:[id number] Voice Confirmation ID: [id number] DOCUMENT ID: [id number] TED MCLEAN MD at 1155 CC: DARLENE CANO [id number] DICTATION DATE: 03/04/181709 EARLY CHILDHOOD EDUCATION INSTRUCTOR: 03/04/182047 ADM IN [facility] [address] [place] [address]
--- NOTE | ~2018-03-04 | MORECARE ---
CASE MANAGEMENT DISCHARGE SUMMARY PATIENT: JIMI ADLER UNIT: [id number] ADM DATE: 03/04/18 AGE: 77 : [birth year] SEX: F ROOM/BED: D[facility] AUTHOR: BERTHA,DOC PHYSICIAN: REFERRING PHYSICIAN: ELENI MCLEAN MD DATE OF SERVICE: 03/08/18 Discharge Plan Patient Name: JIMI ADLER Facility: [facility]:[place] : 1940 Planned Disposition: Home Anticipated Discharge Date: Discharge Date: 03/07/2018 Expected LOS: Initial Reviewer: [email or web address] Initial Review Date: 03/05/2018 Generated: 03/08/18 10:57 am Comments DCP- Discharge Planning Updated by [email or web address]: Irais Aguilar on 03/05/18 3:[address] Patient Name: JIMI ADLER Admission Status: Elective Accout number: [id number] Admission Date: 03-04-2018 : 1940 Admission Diagnosis: Attending: ELENI MCLEAN Current LOS: 1 Anticipated DC Date: Planned Disposition: Home Primary Insurance: MEDICARE A & B Discharge Planning Comments: CM met with patient and daughter at bedside. Patient states she plans on returning home after discharge. Patient denies any discharge needs at this time. CM will continue to follow assist with discharge planning / needs. IMM explained and served 03/05/18 @ 1613. Renal Dialysis Technician: Irais Aguilar DCPIA - Discharge Planning Initial Assessment Updated by [email or web address]: Irais Aguilar on 03/05/18 4:23 pm * Is the patient Alert and Oriented? Yes * How many steps to enter\exit or inside your home? * PCP RACHAEL * Pharmacy [facility] * Preadmission Environment Home Alone * ADLs Independent * Other Equipment WALKER, CANE, W/C, BSC * List name and contact numbers for known caregivers / representatives who currently or will assist patient after discharge: SHADI RODRIGUEZ - DAUGHTER -[phone] * Verbal permission to speak to the caregivers and representatives has been obtained from the patient. Yes * Community resources currently utilized None * Additional services required to return to the preadmission environment? No * Can the patient safely return to the preadmission environment? Yes * Has this patient been hospitalized within the prior 30 days at any hospital? No Coverage Notice Reviewer: [id number] Brendan Aguilar Notice Issued Date-Time: 03/05/2018 16:13 Notice Type: IM Discharge Notice Notice Delivered To: Patient Relationship to Patient: Self Fashion Show Director Name: Delivery Method: HAND - Hand Delivered Marlyn Days: Prior Verbal Notification: Recipient Understood Notice: Yes Recipient Signature: Yes Med Rec Note Co-signed by Attending: Coverage Notice Comment: Last DP export: 03/05/18 3:31 Patient Name: JIMI ADLER Page [id number] at 0958 All edits/amendments must be made on the electronic document DICTATION DATE: 03/08/18956 EPOXY SPECIALIST: WADE 03/08/18956 RPT#: [id number] DC DATE:03/07/18 STATUS: DIS IN [facility] [address] [place] [address] END OF REPORT
[2018-03-04] MEDS ORDERED: K-TAB10 MEQ PO (11:12)
[2018-03-04] MEDS ORDERED: RESTORIL7.5 MG PO (11:13)
[2018-03-04] MEDS ORDERED: BUPROPION XL150 MG PO (11:15)
[2018-03-04] MEDS ORDERED: PYRIDOXINE HCL100 MG PO (11:17)
[2018-03-04] MEDS ORDERED: VITAMIN E400 UNI2 PO (11:17)
[2018-03-04] MEDS ORDERED: VITAMIN D31000 UNIT PO (11:18)
[2018-03-05] VITALS (55 sets, daily range): BP systolic 102–183; BP diastolic 39–82; Ht 165.1 cm; Wt 59.1 kg
[2018-03-06] VITALS (89 sets, daily range): BP systolic 109–191; BP diastolic 46–88
[2018-03-07] VITALS (39 sets, daily range): BP systolic 118–170; BP diastolic 51–85
[2018-03-07] MEDS ORDERED: PLAVIX75 MG PO (12:25)
[2018-03-07] MEDS ORDERED: LOPRESSOR25 MG PO (12:26)
[2018-03-07] MEDS ORDERED: HYDRALAZINE HCL50 MG PO (12:28)
== END 2018-03-07 14:16 | disposition home or self-care (01) | DRG 39 ==
LOC: D.SDCHOLD 07:30 → D.CVICU 17:00
PROVIDERS: Thoracic Surgery (Cardiothoracic Vascular Surgery)
PROC: 03UK0JZ Supplement Right Internal Carotid Artery with Synthetic Substitute, Open Approach (ICD-10-PCS; 2018-03-04)
PROC: 03CK0ZZ Extirpation of Matter from Right Internal Carotid Artery, Open Approach (ICD-10-PCS; principal; 2018-03-04 14:15)
DX: I65.21 Occlusion and stenosis of right carotid artery (principal); F17.200 Nicotine dependence, unspecified, uncomplicated; I70.8 Atherosclerosis of other arteries; J44.9 Chronic obstructive pulmonary disease, unspecified; I10 Essential (primary) hypertension

== ENCOUNTER 2018-03-10 10:22 | Emergency (ER) | payer MEDICARE ==
[~2018-03-10] VITALS: Ht 165.1 cm; Wt 57.3 kg
[~2018-03-10 10:22] MED LIST changes: +BUPROPION XL150 MG PO; +HYDRALAZINE HCL50 MG PO; +K-TAB10 MEQ PO; +PYRIDOXINE HCL100 MG PO; +RESTORIL7.5 MG PO; +VITAMIN D31000 UNIT PO; +VITAMIN E400 UNI2 PO
[2018-03-10 10:28] VITALS: Ht 165.1 cm; Wt 57.3 kg
[2018-03-10 11:00] LABS: APTT 27.2 SECONDS (22.8-39.4); INR 0.94 (0.85-1.17); PROTIME 12.1 SECONDS (11.6-15.0)
[2018-03-10 11:07] LABS: ALBUMIN 3.1 g/dL (3.4-5.0); ANION GAP 12.5 mmol/L (8-16); BILIRUBIN - TOTAL 0.44 mg/dL (0.2-1.3); CALCIUM 9.3 mg/dL (8.5-10.1); CARBON DIOXIDE 29.3 mmol/L (21.0-32.0); CREATININE - SERUM 1.1 mg/dL (0.6-1.3); POTASSIUM - SERUM 3.8 mmol/L (3.5-5.1); PROTEIN - SERUM 7.1 g/dL (6.4-8.2)
[2018-03-10 11:28] LABS: HEMATOCRIT 35.7 % (36.0-48.0); HEMOGLOBIN 11.7 g/dL (12-16); LYMPHOCYTES 18.8 % (15-50); MCH 27.8 pg (26.0-34.0); MCHC 32.8 g/dL (31.0-37.0); MCV 84.8 fL (80.0-100.0); MEAN PLATELET VOLUME 8.7 fL (7.4-10.4); NEUTROPHILS 64.1 % (40-80); PLATELET COUNT 239 10x3/uL (130-400); RBC 4.21 10x6/uL (4.00-5.40); RDW 15.7 % (11.5-14.5); WBC 6.4 10x3/uL (4.8-10.8)
[2018-03-10 13:39] VITALS: BP 195/82
== END 2018-03-10 13:39 | disposition home or self-care (01) ==
LOC: D.ER 10:22
PROVIDERS: Family Medicine
DX: S09.90XA Unspecified injury of head, initial encounter (principal); W17.89XA Other fall from one level to another, initial encounter; Y93.89 Activity, other specified; Y92.89 Other specified places as the place of occurrence of the external cause; Z79.01 Long term (current) use of anticoagulants; Z86.73 Personal history of transient ischemic attack (TIA), and cerebral infarction without residual deficits; I10 Essential (primary) hypertension; I25.10 Atherosclerotic heart disease of native coronary artery without angina pectoris; J44.9 Chronic obstructive pulmonary disease, unspecified; F17.200 Nicotine dependence, unspecified, uncomplicated

== ENCOUNTER → 2018-09-17 11:03 | Outpatient (CLI) | payer MEDICARE ==
[2018-03-10 10:28] VITALS: BMI 21.0
== END | disposition home or self-care (01) ==
LOC: D.US 11:03
PROVIDERS: ATTEND Thoracic Surgery (Cardiothoracic Vascular Surgery)
DX: I65.23 Occlusion and stenosis of bilateral carotid arteries (principal)

== ENCOUNTER → 2018-11-04 13:39 | Outpatient (CLI) | payer MEDICARE ==
[2018-03-10 10:28] VITALS: BMI 21.0
== END | disposition home or self-care (01) ==
LOC: D.HCCARDIO 13:39
PROVIDERS: ATTEND Internal Medicine Cardiovascular Disease
DX: I10 Essential (primary) hypertension (principal)

== ENCOUNTER → 2018-11-24 12:25 | Outpatient (CLI) | payer MEDICARE ==
[2018-03-10 10:28] VITALS: BMI 21.0
== END | disposition home or self-care (01) ==
LOC: D.CT 12:25
PROVIDERS: ATTEND Internal Medicine Cardiovascular Disease
DX: I10 Essential (primary) hypertension (principal); I70.1 Atherosclerosis of renal artery

== ENCOUNTER 2018-12-30 06:11 | Outpatient (CLI) | payer MEDICARE ==
[~2018-12-30] VITALS: Ht 165.1 cm; Wt 50.5 kg
--- NOTE | ~2018-12-30 | HEMODYNAMI ---
PATIENT:JIMI ADLER MEDICAL RECORD: [id number] : 38 LOCATION:[facility] ADMISSION DATE: 12/30/18 Generatedon:12/30/20188:39 Patient name: JIMI ADLER Patient #: [id number] SSN: [id number] : 1940 Date of study: 12/30/2018 Page: Of Hemodynamic Procedure Report Patient Data Patient Demographics Procedure consent was obtained First Name: JIMI Gender: Female Last Name: VITOR : 1940 Patient #: [id number] Age: 78 year(s) Race: SSN: [id number] Additional ID: [id number] Contact details Address: [address] [place] [address] ROAD State: [place] City: [place] Zip code: [address] Past Medical History Allergies Allergen Reaction Date Comments Reported Other 12/30/2018 SATNAM allergy INHIBITORS/ALEVE/CODEINE/LYRICA/PENICILLINS/SULFA (SULFONAMIDE aNTIBIOTICE)/TETRACYCLINE Admission Admission Data Admission Date: 12/30/2018 Admission Time: 6:11 Arrival Date: 12/30/2018 Arrival Time: 0:00 Admit Source: Other Insurance Payor: Medicare [facility] #: [id number] Height (in.): 64.96 BSA: 1.53 (m2) Height (cm.): 165 BMI: 18.37 (kg/m2) Weight (lbs.): 110.23 Weight (kg.): 50 Lab Results Lab Result Date: 12/30/2018 Lab Result Time: 0:00 Biochemistry Name Units Result Min Max BUN mg/dl 7 --(*---)-- 7 18 Creatinine l 1 -*(----)-- 21 215 Kinase eGFR ml/min 57 *-(----)-- 90 120 NONAFRICAN CBC Name Units Result Min Max Hemoglobin g/dl 11.7 *-(----)-- 13.5 17.5 Procedure Procedure Types Cath Procedure Diagnostic Procedure Sedation Charges Moderate Sedation up to 15 minutes Peripheral Cath Diagnostic Procedure Cognos Tm1 Developer Peripheral Procedures AFRO (Diagnostic) Renal Arteriogram Procedure Description Procedure Date Procedure Date: 12/30/2018 Procedure Start Time: 8:16 Procedure End Time: 8:37 Procedure Staff Name Function Antoni Sullivan MD Performing Physician Meenakshi Hickey RT Monitor Bhargavi Ortiz RN Nurse Iris Leyva RT Scrub Procedure Data Cath Procedure Fluoroscopy Diagnostic fluoroscopy Total fluoroscopy Time: 3.6 time: 3.6 min min Diagnostic fluoroscopy Total fluoroscopy dose: 177 dose: 177 mGy mGy Contrast Material Contrast Material Type Amount (ml) Isovue 300 121 Entry Location Entry Primary Successful Side Size Upsize Upsize Entry Closure Succes sful Closure Location (Fr) 1 (Fr) 2 (Fr) Remarks Device Remarks Femoral Right 5 Fr Exoseal artery Diagnostic catheters Device Type Used For End Catheter Placement DIAGNOSTIC UF 5Fr Procedure catheter ([id number]) DIAGNOSTIC JR 4 5Fr Procedure catheter ([id number]) Procedure Complications No complications Procedure Medications Medication Administration Route Dosage Oxygen etCO2 Nasal cannula 2 l/min Lidocaine 2% added to field 20 Heparin Flush Bag added to field 2 bags (1000units/500ml NS) 0.9% NaCl I.V. 100 ml/hr Versed I.V. 1 mg Fentanyl I.V. 50 mcg Versed I.V. 1 mg Fentanyl I.V. 50 mcg Versed I.V. 1 mg Versed I.V. 1 mg Hemodynamics Rest BSA: 1.53 (m2) HGB: 11.7 (g/dl) O2 Consumption: Estimated: 136.29 (ml/min) O2 Co nsumption indexed: Estimated:89.08 (ml/min/m) Heart Rate: 67 (bpm) Snapshots Pre Cath Intra NCS Post Cath Vital Signs Time Heart Resp SPO2 etCO2 NIBP (mmHg) Rhythm Pain Sedation Rate (ipm) (%) (mmHg) Status Level (bpm) 7:59:35 68 15 96 32.9 194/81(147) NSR 0 (11) 10(A) , No pain 8:04:03 67 13 95 32.9 174/81(135) NSR 0 (11) 10(A) , No pain 8:08:25 71 29 93 24.6 169/80(140) NSR 0 (11) 9(A) , No pain 8:12:43 69 13 95 0.7 167/88(140) NSR 0 (11) 9(A) , No pain 8:17:01 68 13 98 8.9 172/80(135) NSR 0 (11) 9(A) , No pain 8:21:23 70 14 100 12.7 157/78(133) NSR 0 (11) 9(A) , No pain 8:25:40 71 15 100 4.4 171/79(131) NSR 0 (11) 9(A) , No pain 8:30:00 71 19 100 8.2 169/80(136) NSR 0 (11) 10(A) , No pain 8:34:18 70 16 96 33.7 186/85(143) NSR 0 (11) 10(A) , No pain Medications Time Medication Route Dose Verified Delivered Reason Notes Effe ctiveness by by 7:59:17 Oxygen etCO2 2 Antoni Buffie used for Nasal l/min Nate Ortiz RN procedure cannula 7:59:25 Lidocaine 2% added 20ml Antoni Antoni for local to vial Nate Sullivan MD anesthetic field 7:59:31 Heparin Flush added 2 Antoni Antoni used for Bag to bags Nate Sullivan MD procedure (1000units/500ml field NS) 7:59:40 0.9% NaCl I.V. 100 Antoni Buffie Per ml/hr Nate Ortiz RN physician 8:03:08 Versed I.V. 1 mg Antoni Buffie for Nate Ortiz RN sedation 8:03:15 Fentanyl I.V. 50 Antoni Buffie for mcg Nate Ortiz RN sedation 8:07:33 Versed I.V. 1 mg Antoni Buffie for Nate Ortiz RN sedation 8:07:37 Fentanyl I.V. 50 Antoni Buffie for mcg Nate Ortiz RN sedation 8:10:51 Versed I.V. 1 mg Antoni Buffie for Nate Ortiz RN sedation 8:25:10 Versed I.V. 1 mg Antoni Buffie for Nate Ortiz RN sedation Procedure Log Time Note 7:40:07 Bhragavi Ortiz RN sent for patient. Start room use. 7:45:19 Informed consent obtained and on chart 7:49:00 Procedure Status Elective Heart Cath (OP). 7:49:02 Time tracking: Regular hours (M-F 7:00 - 5:00) 7:49:04 Plan of Care:Hemodynamics will remain stable., Cardiac rhythm will remain stable., Comfort level will be maintained., Respiratory function will remain adequate., Patient/ family verbilizes understanding of procedure., Procedure tolerated without complication., Recovers from procedure without complications.. 7:49:36 H&P Date Dictated: 12/08/2018 Within 30 days and on chart., H&P Addendum completed by physician on day of procedure. (MUST COMPLETE FOR ALL OUTPATIENTS). 7:51:30 Patient allergic to Other allergyACE INHIBITORS/ALEVE/CODEINE/LYRICA/PENICILLINS/SULFA(SULFONAMIDE aNTIBIOTICE)/TETRACYCLINE 7:51:46 Patient received from Pre/Post Procedure Room to CCL 1 Alert and oriented. Tansferred to table in Supine position. 7:51:51 Warm blankets applied, and yariel hugger turned on for patient comfort. 7:51:53 Correct patient and procedure confirmed by team. 7:51:55 ECG and BP/O2 sat monitors applied to patient. 7:57:11 Vital chart was started 7:57:55 Lab Result : eGFR NONAFRICAN 57 ml/min 7:57:55 Lab Result : Hemoglobin 11.7 g/dl 7:57:55 Lab Result : BUN 7 mg/dl 7:57:55 Lab Result : Creatinine Kinase 1 l 7:58:13 Patient Height : 64.96 inches 7:58:19 Patient Weight : 110.23 lbs 7:58:24 Admit Source: Other 7:58:28 Arrival Date: 12/30/2018 12:00:00 AM 7:59:10 Insurance Payor : Medicare 7:59:17 Oxygen 2 l/min etCO2 Nasal cannula was administered by Bhargavi Ortiz RN; used for procedure; Verbal order read back and verified. 7:59:19 Baseline sample Acquired. 7:59:25 Lidocaine 2% 20ml vial added to field was administered by Antoni Sullivan MD; for local anesthetic; Verbal order read back and verified. 7:59:26 Rhythm: sinus rhythm 7:59:28 Pre-procedure instructions explained to patient. 7:59:29 Pre-op teaching completed and patient verbalized understanding. 7:59:31 Heparin Flush Bag (1000units/500ml NS) 2 bags added to field was administered by Antoni Sullivan MD; used for procedure; Verbal order read back and verified. 7:59:31 Family in waiting room. 7:59:34 Full Disclosure recording started 7:59:40 0.9% NaCl 100 ml/hr I.V. was administered by Bhargavi Ortiz RN; Per physician; Verbal order read back and verified. 7:59:41 Is the patient allergic to Iodine/contrast media? No. 7:59:45 Is patient on blood thinner?Yes 7:59:50 ACC The patient was administered the following blood thiners within the last 24 hours: ACCPlavix 8:00:11 Patient diabetic? No. 8:00:26 ----Pre-sedation anethsthesia assessment.---- 8:00:31 Previous problem with sedation/anesthesia? No ? 8:00:34 Snore? Yes 8:00:36 Sleep apnea? No 8:00:38 Deviated septum? No 8:00:40 Opens mouth fully? Yes 8:00:41 Sticks out tongue? Yes 8:01:03 Airway obstruction? Yes copd/ 2 lit O2 AT NIGHT 8:01:22 Dentures? Yes IN TIGHT 8:01:29 Pre procedure: right dorsailis pedis pulse 2+ Normal; easily identifiable; not easily obliterated 8:01:35 Pre procedure: left dorsailis pedis pulse Doppler 8:01:45 Patient pain scale 0/10 ?. 8:02:02 IV patent on arrival in left forearm with 0.9% NaCl at KVO. 8:02:09 Lab results completed and on chart. 8:02:31 Bilateral groins area was prepped with chlora-prep and draped in sterile fashion 8:02:34 Alarms reviewed by R. N. 8:02:35 Sharps counted by scrub and verified by R.N. 8:02:41 Physician arrived 8:02:42 --------ALL STOP TIME OUT------ 8:02:43 Final Timeout: patient, procedure, and site verified with staff and physician. All members of the team are in agreement. 8:02:46 Bilateral groins site verified by team. 8:02:53 Fire Safety Assessment: A--An alcohol-based skin anteseptic being used preoperatively., C--Open oxygen or nitrous oxide is being used., D--An ESU, laser, or fiber-optic light is being used. 8:02:59 Physical assessment completed. ASA score P 2 - A patient with mild systemic disease as per Antoni Sullivan MD. 8:03:08 Versed 1 mg I.V. was administered by Bhargavi Ortiz RN; for sedation; Verbal order read back and verified. 8:03:11 3a) 45-59 Moderately reduced kidney function. 8:03:15 Fentanyl 50 mcg I.V. was administered by Bhargavi Ortiz RN; for sedation; Verbal order read back and verified. 8:03:55 Maximum allowable contrast dose (3.7 X eGFR X 0.75)158 ml. 8:04:03 Sedation plan: IV Moderate Sedation Medication:Versed, Fentanyl 8:04:13 Use device set Femoral Dx 8:04:16 ACIST Syringe (43441) opened to sterile field. 8:04:16 Bag Decanter (2002S) opened to sterile field. 8:04:17 Medline Cath Pack ([id number]) opened to sterile field. 8:04:19 ACIST Hand Control (51716) opened to sterile field. 8:04:20 ACIST Manifold (15445) opened to sterile field. 8:04:22 Tegaderm 4 x 4 (1626W) opened to sterile field. 8:04:31 SHEATH 5FR [place] ([id number]) opened to sterile field. 8:04:32 EMERALD Guide Wire (814-431) opened to sterile field. 8:07:04 Procedure type changed to Cath procedure, Diagnostic procedure, Sedation Charges, Moderate Sedation up to 15 minutes, Peripheral Cath Diagnostic Procedure, Cognos Tm1 Developer Peripheral Procedures, AFRO (Diagnostic), Renal Arteriogram 8:07:33 Versed 1 mg I.V. was administered by Bhargavi Ortiz RN; for sedation; Verbal order read back and verified. 8:07:37 Fentanyl 50 mcg I.V. was administered by Bhargavi Ortiz RN; for sedation; Verbal order read back and verified. 8:10:51 Versed 1 mg I.V. was administered by Bhargavi Ortiz RN; for sedation; Verbal order read back and verified. 8:11:46 Zero performed for pressure channel P1 8:15:46 Procedure started. 8:16:56 Local anesthetic to right femoral artery with Lidocaine 2% by Antoni Sullivan MD.INITIAL ACCESS ONLY 8:18:35 A 5 Fr sheath was inserted into the Right Femoral artery 8:19:56 A DIAGNOSTIC UF 5Fr catheter ([id number]) was advanced over the wire and used for Procedure. 8:20:18 Abdominal angiogram w/ runoff was performed. 8:21:34 Right leg runoff performed. 8:22:17 Left leg runoff performed. 8:25:10 Versed 1 mg I.V. was administered by Bhargavi Ortiz RN; for sedation; Verbal order read back and verified. 8:25:32 Catheter exchanged over wire. 8:25:40 A DIAGNOSTIC JR 4 5Fr catheter ([id number]) was advanced over the wire and used for Procedure. 8:26:58 Right renal angiography performed. 8:28:02 Left renal angiography performed. 8:30:57 Catheter removed. 8:31:23 EXOSEAL 5Fr (EX500) opened to sterile field. 8:31:57 Sheath removed intact; hemostasis achieved with Exoseal to the Right Femoral artery. 8:32:01 Procedure ended.(Physican Out) 8:33:33 Fluoroscopy time 03.60 minutes. 8:33:40 Fluoroscopy dose: 177 mGy 8:33:40 Flurop Dose total: 177 8:33:48 Dose Area Product 62933 mGy/cm. 8:33:54 Contrast amount:Isovue 300 121ml. 8:34:04 Maximum allowable dose exceeded? No. 8:34:16 Sharps counted by scrub and verified by R.N. 8:34:20 Insertion/operative site no bleeding no hematoma. 8:34:24 Post-op/insertion site Right Femoral artery dressed using a 4 x 4 and Tegaderm. 8:34:30 Post Procedure Pulses reassessed and unchanged 8:34:35 Post procedure rhythm: unchanged. 8:34:40 Post procedure instruction explained to patient.Patient verbalizes understanding. 8:34:42 Patient needs reinforcement of post procedure teaching. 8:36:15 Procedure and supply charges have been captured, reviewed, submitted and are correct. 8:36:23 Procedure Complication : No complications 8:36:27 Vital chart was stopped 8:36:32 Operative report dictated upon procedure completion. 8:36:34 See physician's report for complete and final results. 8:36:38 Report given to Pre/Post Procedure Room. 8:36:56 Patient transfered to Pre/Post Procedure Room with Stretcher. 8:37:03 Procedure ended. 8:37:03 Full Disclosure recording stopped 8:37:18 End room use (Document Last) 8:38:21 End room use (Document Last) Device Usage Item Name Manufacture Quantity Catalog Hospital Part Current Minimal L ot# / Number Charge Number Stock Stock Serial# Code ACIST Acist 1 43419 527164 [id number] 355106 20 Syringe Medical (60004) Systems Inc Bag Microtek 1 2001S 971746 81816 258580 5 Decanter Medical Inc. (2001S) Medline Medline 1 [id number] 880659 40812 868442 5 Cath Pack ([id number]) ACIST Hand Acist 1 87126 760396 534801 129924 5 Control Medical (96669) Systems Inc ACIST Acist 1 42496 792945 833873 792865 5 Manifold Medical (36098) Systems Inc Tegaderm 4 3M 1 1626W 725951 610194 945395 5 x 4 (1626W) SHEATH 5FR Terumo 1 JVG892 990702 766115 702073 5 [place] (JRZ481) EMERALD Cardinal 1 502-455 938756 019498 661651 5 Guide Wire Health (502-455) DIAGNOSTIC Cardinal 1 [id number] 456728 584732 966050 10 UF 5Fr Health catheter (337778M0) DIAGNOSTIC Cardinal 1 [id number] 267034 642152 653916 5 JR 4 5Fr Health catheter (242644K) EXOSEAL 5Fr Cardinal 1 EX500 744741 382636 698179 10 (EX500) Health Signature Audit [place] Stage Time Signature Unsigned Intra-Procedure 12/30/2018 Meenakshi Hickey 8:38:21 AM RT(R) Intra-Procedure 12/30/2018 Bhargavi Ortiz RN 8:38:54 AM Intra-Procedure 12/30/2018 Antoni Sullivan MD 8:39:30 [place] [address]
[2018-12-30] MEDS ORDERED: NORVASC10 MG PO (06:44)
[2018-12-30] MEDS ORDERED: TOPROL XL100 MG PO (06:44)
[2018-12-30 07:05] VITALS: BP 162/72; Ht 165.1 cm; Wt 50.5 kg
[2018-12-30 07:07] LABS: BASOPHILS 0.4 % (0-2); EOSINOPHILS 1.9 % (0-7); HEMATOCRIT 35.4 % (36.0-48.0); HEMOGLOBIN 11.7 g/dL (12-16); IMMATURE GRANULOCYTES 0.1 % (0-5); LYMPHOCYTES 26.1 % (15-50); MCHC 33.1 g/dL (31.0-37.0); MCV 81.6 fL (80.0-100.0); MEAN PLATELET VOLUME 8.5 fL (7.4-10.4); MONOCYTES 12.5 % (2-11); PLATELET COUNT 261 10x3/uL (130-400); RBC 4.34 10x6/uL (4.00-5.40); RDW 19.4 % (11.5-14.5); WBC 7.2 10x3/uL (4.8-10.8)
[2018-12-30 07:29] LABS: ANION GAP 11.2 mmol/L (8-16); CALCIUM 8.9 mg/dL (8.5-10.1); CARBON DIOXIDE 27.4 mmol/L (21.0-32.0); CHOL - HDL RATIO 3.3 ratio (2.3-4.1); LDL-HDL RATIO 1.9 ratio (1.5-3.5); POTASSIUM - SERUM 3.6 mmol/L (3.5-5.1)
--- NOTE | 2018-12-30 08:45 | NUR ---
PT ARRIVED BY STRETCHER. PLACED ON MONITORS. ASSESSMENT COMPLETED. VSS. NO FAMILY IN WAITING ROOM AT THIS TIME.
--- NOTE | 2018-12-30 08:48 | NUR ---
PT ON BEDPAN. VOIDED APPROX 350cc OF CLEAR YELLOW URINE. RIGHT GROIN DRESSING C/D/I. NO S/S OF HEMATOMA NOTED. CALL LIGHT WITHIN REACH.
--- NOTE | 2018-12-30 09:05 | NUR ---
PT ON BEDPAN. VOIDED APPROX 400cc OF CLEAR YELLOW URINE NOTED. HAVEN-CARE GIVE. PT STILL IN SUPINE POSITION. CALL LIGHT WITHIN REACH.
--- NOTE | 2018-12-30 09:37 | NUR ---
PT ON BEDPAN. VOIDED APPROX 300cc OF CLEAR YELLOW URINE. HAVEN-CARE GIVEN. PT IN SUPINE POSITION. RIGHT GROIN DRESSING C/D/I. NO S/S OF HEMATOMA NOTED. CALL LIGHT WITHIN REACH. FAMILY AT BEDSIDE. DR. PANCHAL ROUNDED AND SPOKE WITH PT AND PT'S FAMILY. THEY VOICED UNDERSTANDING.
--- NOTE | 2018-12-30 09:55 | NUR ---
HEAD OF BED INC TO 30 DEGREES. TOLERATED WELL. RIGHT GROIN DRESSING C/D/I. NO S/S OF HEMATOMA NOTED. CALL LIGHT WITHIN REACH. FAMILY AT BEDSIDE. VSS. PT SET UP WITH SANDWICH TRAY AND DRINK. DENIES NAUSEA/PAIN.
--- NOTE | 2018-12-30 10:20 | NUR ---
RIGHT GROIN DRESSING C/D/I. NO S/S OF HEMATOMA NOTED. CALL LIGHT WITHIN REACH. VSS. PIV D/C'D WITH CATH TIP INTACT. TOLERATED WELL. PT AMBULATED TO RESTROOM. VOIDED WITHOUT DIFFICULTY. BACK TO ROOM AND SITTING IN CHAIR. RIGHT GROIN DRESSING STABLE AFTER AMBULATION. NO S/S OF HEMATOMA NOTED.
--- NOTE | 2018-12-30 10:40 | NUR ---
DISCUSSED DISCHARGE INSTRUCTIONS WITH PT AND PT'S FAMILY. THEY VOICED UNDERSTANDING. RIGHT GROIN DRESSING C/D/I. NO S/S OF HEMATOMA NOTED.
--- NOTE | 2018-12-30 10:45 | NUR ---
PT TAKEN OUT TO VEHICLE BY WHEELCHAIR. NO S/S OF DISTRESS NOTED. ALL BELONGINGS AND PAPERWORK IN HAND.
== END 2018-12-30 10:45 | disposition home or self-care (01) ==
LOC: D.CATH 06:11
PROVIDERS: ATTEND Internal Medicine Cardiovascular Disease
DX: I70.213 Atherosclerosis of native arteries of extremities with intermittent claudication, bilateral legs (principal); I70.0 Atherosclerosis of aorta

== ENCOUNTER 2019-04-21 06:59 | Outpatient (CLI) | payer MEDICARE ==
[~2019-04-21] VITALS: Ht 165.1 cm; Wt 58.5 kg
--- NOTE | ~2019-04-21 | HEMODYNAMI ---
PATIENT:JIMI ADLER MEDICAL RECORD: [id number] : 38 LOCATION:[facility] ADMISSION DATE: 04/21/19 Generatedon:04/21/201911:02 Patient name: JIMI ADLER Patient #: [id number] SSN: [id number] : 1940 Date of study: 04/21/2019 Page: Of Hemodynamic Procedure Report Patient Data Patient Demographics Procedure consent was obtained First Name: JIMI Gender: Female Last Name: VITOR : 1940 Patient #: [id number] Age: 78 year(s) Race: SSN: [id number] Additional ID: [id number] Contact details Address: [address] [place] [address] ROAD State: [place] City: [place] Zip code: [address] Past Medical History Allergies Allergen Reaction Date Comments Reported Other 12/30/2018 SATNAM allergy INHIBITORS/ALEVE/CODEINE/LYRICA/PENICILLINS/SULFA (SULFONAMIDE aNTIBIOTICE)/TETRACYCLINE Other 04/21/2019 SATNAM INHIBITORS, ALEVE, CODEINE, LYRICA, PCN, SULF A, allergy TETRACYCLINE Admission Admission Data Admission Date: 04/21/2019 Admission Time: 6:59 Arrival Date: 04/21/2019 Arrival Time: 0:00 Height (in.): 65 BSA: 1.64 (m2) Height (cm.): 165.1 BMI: 21.28 (kg/m2) Weight (lbs.): 127.87 Weight (kg.): 58 Lab Results Lab Result Date: 04/21/2019 Lab Result Time: 0:00 Biochemistry Name Units Result Min Max BUN mg/dl 12 --(-*--)-- 7 18 Creatinine mg/dl 1.1 --(--*-)-- 0.6 1.3 eGFR ml/min 51 *-(----)-- 90 120 NONAFRICAN CBC Name Units Result Min Max Hematocrit % 38.6 *-(----)-- 42 54 Hemoglobin g/dl 12.8 -*(----)-- 13.5 17.5 Procedure Procedure Types Cath Procedure PCI Procedure Hemochron ACT Test Peripheral vascular Intervention Atherectomy Atherectomy Fem/Pop w/Plasty Procedure Description Procedure Date Procedure Date: 04/21/2019 Procedure Start Time: 10:19 Procedure End Time: 11:01 Procedure Staff Name Function Antoni Sullivan MD Performing Physician Meenakshi Hickey RT Monitor Filipe Strong RT Scrub Iris Leyva RT Scrub Angelina Barker RT Medical Billing And Coding Specialist Bhargavi Ortiz RN Nurse Procedure Data Cath Procedure Fluoroscopy Diagnostic fluoroscopy Total fluoroscopy Time: 9.9 time: 9.9 min min Diagnostic fluoroscopy Total fluoroscopy dose: 80 dose: 80 mGy mGy Contrast Material Contrast Material Type Amount (ml) Isovue 300 19 Entry Location Entry Primary Successful Side Size Upsize Upsize Entry Closure Succes sful Closure Location (Fr) 1 (Fr) 2 (Fr) Remarks Device Remarks Femoral Right 6 Fr 6 Fr Exoseal artery Short Long Estimated blood loss: 5 ml Diagnostic catheters Device Type Used For End Catheter Placement DIAGNOSTIC IMT 5Fr Procedure Catheter ([id number]) Procedure Medications Medication Administration Route Dosage Oxygen etCO2 Nasal cannula 2 l/min Lidocaine 2% added to field 20 Heparin Flush Bag added to field 2 bags (1000units/500ml NS) 0.9% NaCl I.V. 100 ml/hr Heparin Bolus I.V. 5000 units Versed I.V. 1 mg Fentanyl I.V. 100 mcg Viperslide Mix(5mg added to field 1 bags Verapamil/5mg Nitro/20cc Viperslide/100cc Bag NS) Fentanyl I.V. 50 mcg Versed I.V. 1 mg Hemodynamics Rest BSA: 1.64 (m2) HGB: 12.8 (g/dl) O2 Consumption: Estimated: 147.8 (ml/min) O2 Con sumption indexed: Estimated:90.12 (ml/min/m) Heart Rate: 70 (bpm) Snapshots Pre Cath Intra NCS Post Cath Vital Signs Time Heart Resp SPO2 etCO2 NIBP (mmHg) Rhythm Pain Sedation Rate (ipm) (%) (mmHg) Status Level (bpm) 10:06:05 70 11 92 0 155/73(124) NSR 0 (11) 10(A) , No pain 10:10:25 70 10 96 33.1 171/75(119) NSR 0 (11) 10(A) , No pain 10:14:50 69 12 93 0 164/81(128) NSR 0 (11) 10(A) , No pain 10:19:10 69 10 98 38.4 162/75(138) NSR 0 (11) 10(A) , No pain 10:23:30 70 17 97 33.1 171/77(130) NSR 0 (11) 10(A) , No pain 10:27:56 72 10 96 36.9 156/72(127) NSR 0 (11) 9(A) , No pain 10:32:16 72 9 96 40.7 150/75(116) NSR 0 (11) 9(A) , No pain 10:36:34 71 12 95 36.9 149/75(115) NSR 0 (11) 9(A) , No pain 10:40:52 72 12 92 36.2 151/75(109) NSR 0 (11) 9(A) , No pain 10:45:08 71 12 93 36.2 163/78(118) NSR 0 (11) 9(A) , No pain 10:49:31 71 14 93 38.3 160/76(112) NSR 0 (11) 9(A) , No pain 10:53:51 70 14 94 37.7 167/81(135) NSR 0 (11) 10(A) , No pain 10:58:13 71 14 94 36.8 168/81(127) NSR 0 (11) 10(A) , No pain Medications Time Medication Route Dose Verified Delivered Reason Notes Effectiveness by by 10:09:11 Oxygen etCO2 2 Antoni Buffie used for Nasal l/min Nate Ortiz RN procedure cannula 10:09:32 Lidocaine 2% added 20ml Antoni Antoni for local to vial Nate Sullivan MD anesthetic field 10:09:38 Heparin Flush added 2 Antoni Antoni used for Bag to bags Nate Sullivan MD procedure (1000units/500ml field NS) 10:09:46 0.9% NaCl I.V. 100 Antoni Buffie Per physician ml/hr Nate Ortiz RN 10:20:23 Versed I.V. 1 mg Antoni Buffie for sedation Nate Ortiz RN 10:20:38 Fentanyl I.V. 100 Antoni Buffie for sedation mcg Nate Ortiz RN 10:25:07 Heparin Bolus I.V. 5000 Antoni Buffie for verif ied units Nate Ortiz RN anticoagulation with dr sullivan 10:30:43 Viperslide added 1 Antoni Buffie used for Mix(5mg to bags Nate Ortiz RN procedure Verapamil/5mg field Nitro/20cc Viperslide/100cc Bag NS) 10:40:02 Fentanyl I.V. 50 Antoni Buffie for sedation mcg Nate Ortiz RN 10:40:35 Versed I.V. 1 mg Antoni Buffie for sedation Nate Ortiz RN Procedure Log Time Note 9:48:52 Informed consent obtained and on chart 9:49:26 Procedure Status Elective Heart Cath (OP). 9:49:28 Time tracking: Regular hours (M-F 7:00 - 5:00) 9:50:36 H&P Date Dictated: 04/07/2019 Within 30 days and on chart., H&P Addendum completed by physician on day of procedure. (MUST COMPLETE FOR ALL OUTPATIENTS). 9:50:51 Angelina Barker RT(R) (CV) sent for patient. Start room use. 9:52:40 Patient allergic to Other allergyACE INHIBITORS, ALEVE, CODEINE, LYRICA , PCN, SULFA, TETRACYCLINE 9:53:49 Patient Weight : 127.87 lbs 9:53:59 Patient Height : 65 inches 9:54:03 Arrival Date: 04/21/2019 12:00:00 AM 9:55:02 Lab Result : Hemoglobin 12.8 g/dl 9:55:02 Lab Result : Hematocrit 38.6 % 9:55:02 Lab Result : eGFR NONAFRICAN 51 ml/min 9:55:02 Lab Result : BUN 12 mg/dl 9:55:02 Lab Result : Creatinine 1.1 mg/dl 10:04:52 Patient received from Pre/Post Procedure Room to CCL 1 Alert and oriented. Tansferred to table in Supine position. 10:04:53 Warm blankets applied, and yariel hugger turned on for patient comfort. 10:04:53 Correct patient and procedure confirmed by team. 10:04:53 ECG and BP/O2 sat monitors applied to patient. 10:04:54 Vital chart was started 10:04:55 Baseline sample Acquired. 10:04:59 Rhythm: sinus rhythm 10:05:01 Full Disclosure recording started 10:05:02 Pre-procedure instructions explained to patient. 10:05:02 Pre-op teaching completed and patient verbalized understanding. 10:05:04 Family in patients room. 10:05:05 Patient NPO since Midnight. 10:05:12 Is the patient allergic to Iodine/contrast media? No. 10:05:15 Is patient on blood thinner?Yes 10:05:17 ACC The patient was administered the following blood thiners within the last 24 hours: ACCPlavix 10:05:34 Patient diabetic? No. 10:09:11 Oxygen 2 l/min etCO2 Nasal cannula was administered by Bhargavi Ortiz RN; used for procedure; Verbal order read back and verified. 10:09:32 Lidocaine 2% 20ml vial added to field was administered by Antoni Sullivan MD ; for local anesthetic; Verbal order read back and verified. 10:09:38 Heparin Flush Bag (1000units/500ml NS) 2 bags added to field was administered by Antoni Sullivan MD; used for procedure; Verbal order read back and verified. 10:09:46 0.9% NaCl 100 ml/hr I.V. was administered by Bhargavi Ortiz RN; Per physician; Verbal order read back and verified. 10:15:50 ----Pre-sedation anethsthesia assessment.---- 10:15:54 Previous problem with sedation/anesthesia? No ? 10:15:57 Snore? Yes 10:16:03 Sleep apnea? No 10:16:05 Deviated septum? No 10:16:08 Opens mouth fully? Yes 10:16:10 Sticks out tongue? Yes 10:16:14 Airway obstruction? No ? 10:16:21 Dentures? Yes IN TIGHT 10:16:40 - 10:16:44 Pre procedure: right dorsailis pedis pulse 2+ Normal; easily identifiable; not easily obliterated 10:16:56 IV patent on arrival in right forearm with 0.9% NaCl at [facility]. 10:17:12 Lab results completed and on chart. 10:17:41 Bilateral GROIN was prepped with chlora-prep and draped in sterile fashion. 10:18:23 Alarms reviewed by R. N. 10:18:23 Sharps counted by scrub and verified by R.N. 10:18:25 Physician arrived 10:18:25 --------ALL STOP TIME OUT------ 10:18:27 Final Timeout: patient, procedure, and site verified with staff and physician. All members of the team are in agreement. 10:18:34 Bilateral groins site verified by team. 10:18:39 Fire Safety Assessment: A--An alcohol-based skin anteseptic being used preoperatively., C--Open oxygen or nitrous oxide is being used., D--An ESU, laser, or fiber-optic light is being used. 10:18:51 Physical assessment completed. ASA score P 2 - A patient with mild systemic disease as per Antoni Sullivan MD. 10:18:57 3a) 45-59 Moderately reduced kidney function. 10:19:01 Maximum allowable contrast dose (3.7 X eGFR X 0.75)142 ml. 10:19:07 Sedation plan: IV Moderate Sedation Medication:Versed, Fentanyl 10:19:20 Use device set IR Diagnostic 10:19:22 ACIST Syringe (86940) opened to sterile field. 10:19:23 ACIST Hand Control (23325) opened to sterile field. 10:19:24 ACIST Manifold (75564) opened to sterile field. 10:19:25 Bag Decanter (2001S) opened to sterile field. 10:19:27 Tegaderm 4 x 4 (1626W) opened to sterile field. 10:19:35 Procedure started. 10:19:42 Local anesthetic to right femoral artery with Lidocaine 2% by Antoni perez MD.INITIAL ACCESS ONLY 10:19:53 SHEATH 6FR Monarch (WWR528) opened to sterile field. 10:20:01 INFLATOR Merit BasixCompak (UT0950) opened to sterile field. 10:20:21 A 6 Fr Short sheath was inserted into the Right Femoral artery 10:20:23 Versed 1 mg I.V. was administered by Bhargavi Ortiz RN; for sedation; Verbal order read back and verified. 10:20:38 Fentanyl 100 mcg I.V. was administered by Bhargavi Ortiz RN; for sedation; Verbal order read back and verified. 10:20:40 EMERALD Guide Wire (502-251) opened to sterile field. 10:20:54 SHEATH 6FR Destination (RSR01) opened to sterile field. 10:22:12 A DIAGNOSTIC IMT 5Fr Catheter ([id number]) was advanced over the wire an d used for Procedure. 10:22:44 Angiography was performed. 10::52 GLIDEWIRE ADVANCED AROUND HORN. 10::55 Catheter removed. 10:23:11 Sheath upsized to a 6 Fr Long. 10:24:12 WIRE REMOVED. 10:25:07 Heparin Bolus 5000 units I.V. was administered by Bhargavi Ortiz RN; for anticoagulation; verified with dr sullivan Verbal order read back and verified. 10:25:32 Medline Cath Pack ([id number]) opened to sterile field. 10:26:30 DIAMONDBACK Viperwire Advance Coronary guidewire ([id number]) opened to sterile field. 10:26:35 VIPER WIRE IS ADVANCED. 10:27:01 WIRE IS ADVANCED ACROSS LESION LT SFA. 10:28:43 DIAMONDBACK 360 1.50 SOLID Atherectomy catheter ([id number]) opened to sterile field. 10:30:43 Viperslide Mix(5mg Verapamil/5mg Nitro/20cc Viperslide/100cc Bag NS) 1 bags added to field was administered by Bhargavi Ortiz RN; used for procedure; Verbal order read back and verified. 10:31:18 DIAMONDBACK ADVANCED WITH MULTIPLE PASSES MADE IN THE LEFT SFA . 10:40:02 Fentanyl 50 mcg I.V. was administered by Bhargavi Ortiz RN; for sedation; Verbal order read back and verified. 10:40:35 Versed 1 mg I.V. was administered by Bhargavi Ortiz RN; for sedation; Verbal order read back and verified. 10:40:54 THE DIAMONDBACK CATH REMOVED. 10:45:05 Inflate balloon Inflation number: 1 A SABER 5.0 X 200 X 150 balloon ([id number]) was prepped and advanced across the Mid Superficial Femoral, Left , then inflated to 5 JUICE for 0:00 (min:sec) . 10:47:55 Inflation number: 2 The SABER 5.0 X 200 X 150 balloon ([id number]) was reinflated across the Mid Superficial Femoral, Left , to 5 JUICE for 0:00 (min:sec) . 10:49:11 LT LEG ANGIO PERFORMED. 10:50:03 Balloon removed over the wire. 10:50:12 Wire removed. 10:50:52 THE DESTINATION SHEATH IS REPLACED WITH A SHORT 6 JAPANESE SHEATH. 10:51:36 EXOSEAL 6Fr (EX600) opened to sterile field. 10:51:57 Sheath removed intact; hemostasis achieved with Exoseal to the Right Femoral artery. 10:52:13 Contrast amount:Isovue 300 19ml. 10:52:17 Procedure ended.(Physican Out) 10:52:49 Fluoroscopy time 09.90 minutes. 10:52:58 Flurop Dose total: 80 10:52:58 Fluoroscopy dose: 80 mGy 10:53:08 Dose Area Product 8575 mGy/cm. 10:53:21 Maximum allowable dose exceeded? No. 10:53:22 Sharps counted by scrub and verified by R.N. 10:53:32 Post-op/insertion site Right Femoral artery dressed using a 4 x 4 and Tegaderm. 10:53:39 Post right femoral artery:stable 10:53:42 Post Procedure Pulses reassessed and unchanged 10:53:51 Post-procedure physical assessment completed. ASA score P 2 - A patient with mild systemic disease as per Antoni Sullivan MD. 10:54:00 Estimated blood loss: 5 ml 10:54:02 Post procedure instruction explained to patient.Patient verbalizes understanding. 10:54:03 Patient needs reinforcement of post procedure teaching. 10:54:35 ACT drawn and resulted at 261 seconds. (normal therapeutic range 180-24 0 seconds). 10:56:36 Procedure type changed to Cath procedure, PCI procedure, Hemochron ACT Test, Peripheral vascular Intervention, Atherectomy, Atherectomy Fem/Pop w/Plasty 10:56:56 Procedure and supply charges have been captured, reviewed, submitted an d are correct. 11:00:51 Vital chart was stopped 11:01:02 Operative report dictated upon procedure completion. 11:01:02 See physician's report for complete and final results. 11:01:05 Report given to Pre/Post Procedure Room. 11:01:10 Patient transfered to Pre/Post Procedure Room with Stretcher. 11:01:16 Procedure ended. 11:01:16 Full Disclosure recording stopped 11:01:19 End room use (Document Last) Intervention Summary Intervention Notes Time ActionType Lesion and Equipment Action# Pressure Duration Attributes Used 10:45:05 Inflate Mid SABER 5.0 X 1 5 00:00 balloon Superficial 200 X 150 Femoral, balloon Left ([id number]) 10:47:55 Reinflate Mid SABER 5.0 X 2 5 00:00 balloon Superficial 200 X 150 Femoral, balloon Left ([id number]) Device Usage Item Name Manufacture Quantity Catalog Number Hospital Part Curr ent Minimal Lot# / Charge Number Stock Stock Serial# Code ACIST Syringe Acist Medical 1 01889 626717 805460 1403 09 20 (51848) Systems Inc ACIST Hand Acist Medical 1 36328 183235 111964 9100 40 5 Control (66041) Systems Inc ACIST Manifold Acist Medical 1 61536 950040 169193 5088 56 5 (21336) Systems Inc Bag Decanter Microtek 1 2001S 474899 87542 9851 50 5 (2001S) Medical Inc. Tegaderm 4 x 4 3M 1 1626W 427239 035716 6542 94 5 (1626W) SHEATH 6FR Terumo 1 FOU803 179626 863570 3629 07 40 Monarch ([id number]) INFLATOR [facility]it [facility] Medical 1 IP7406 947142 350399 9582 45 15 BasixCompak (EI9689) EMERALD Guide Cardinal 1 502-455 493426 995477 4116 30 5 Wire (502-455) Health SHEATH 6FR Terumo 1 RSR01 056600 30442 9995 54 5 Destination (RSR01) DIAGNOSTIC IMT [place] 1 [id number] 334285 692244 9073 1 5 5Fr Catheter Scientific ([id number]) Medline Cath Medline 1 [id number] 269615 47053 9871 54 5 Pack ([id number]) DIAMONDBACK Cardiovascular 1 [facility]-14444RE 208949 040639 6652 94 5 Viperwire systems Advance Coronary guidewire ([id number]) DIAMONDBACK 360 Cardiovascular 1 [id number] 454550 40205 9999 92 5 1.50 SOLID systems Atherectomy catheter ([id number]) SABER 5.0 X 200 Cardinal 1 [id number] 393317 5733 93 5 X 150 balloon Health ([id number]) EXOSEAL 6Fr Cardinal 1 EX600 060618 224477 1845 02 10 (EX600) Health Signature Audit [place] Stage Time Signature Unsigned Intra-Procedure 04/21/2019 Angelina 11:01:51 AM Mj RT(R) (CV) Intra-Procedure 04/21/2019 Bhargavi Ortiz RN 11:02:21 AM Intra-Procedure 04/21/2019 Antoni Sullivan MD 11:02:49 AM [address] [place] [address]
[~2019-04-21 06:59] MED LIST changes: +NORVASC10 MG PO; +TOPROL XL100 MG PO
[2019-04-21] MEDS ORDERED: K-TAB10 MEQ PO (07:40)
[2019-04-21 07:57] VITALS: BP 108/69; Ht 165.1 cm; Wt 58.5 kg
[2019-04-21 08:08] LABS: BASOPHILS 0.5 % (0-2); EOSINOPHILS 3.9 % (0-7); HEMATOCRIT 38.6 % (36.0-48.0); HEMOGLOBIN 12.8 g/dL (12-16); IMMATURE GRANULOCYTES 0.2 % (0-5); LYMPHOCYTES 38.3 % (15-50); MCH 28.8 pg (26.0-34.0); MCHC 33.2 g/dL (31.0-37.0); MCV 86.9 fL (80.0-100.0); MEAN PLATELET VOLUME 8.9 fL (7.4-10.4); MONOCYTES 12.8 % (2-11); NEUTROPHILS 44.3 % (40-80); PLATELET COUNT 270 10x3/uL (130-400); RBC 4.44 10x6/uL (4.00-5.40); RDW 15.3 % (11.5-14.5); WBC 6.2 10x3/uL (4.8-10.8)
[2019-04-21 08:17] LABS: ANION GAP 10.5 mmol/L (8-16); CALCIUM 9.1 mg/dL (8.5-10.1); CARBON DIOXIDE 28.6 mmol/L (21.0-32.0); CREATININE - SERUM 1.1 mg/dL (0.6-1.3); POTASSIUM - SERUM 4.1 mmol/L (3.5-5.1)
--- NOTE | 2019-04-21 11:10 | NUR ---
PT RECEIVED VIA STRETCHER FROM DESK MANAGER POST AFRO FOR RECOVERY. PT SLEEPING BUT VERBALLY AROUSABLE. PT DENIES PAIN OR DISCOMFORT. PT PLACED ON CARDIAC MONITORS AND O2 VIA NC. HR NSR RATE 71, BP 176/88, RR 16, SAT 93. R GROIN W 6FR EXOCELE, DRESSING CDI NO S/S HEMATOMA NOTED. LEG PINK AND WARM, PEDAL PULSES PALPABLE X4. PT INSTRUCTED TO KEEP HEAD ON PILLOW AND LEG STRAIGHT, SHE VERBALIZED UNDERSTANDING. CALL LIGHT IN REACH. IV PATENT INFUSING VIA L ARM PER ORDERS. FAMILY AT BS
--- NOTE | 2019-04-21 11:30 | NUR ---
PT RESTING COMFORTABLY. R GROIN SOFT, DRESSING CDI NO S/S HEAMTOMA NOTED. PEDAL PULSES PALPABLE, LEG PINK AND WARM. VSS. CALL LIGHT IN REACH. DR PANCHAL IN AND SPOKE WITH PT AND FAMILY REGARDING PLAN OF CARE AND PROCEDURE RESULTS.
--- NOTE | 2019-04-21 12:15 | NUR ---
PT SLEEPING, R GROIN SOFT, DRESSING CDI NO S/S HEMATOMA NOTED. HR 65, BP 163/72, RR 15. IV REMAINS PATENT. CALL LIGHT IN REACH.
--- NOTE | 2019-04-21 12:40 | NUR ---
PT RESTING COMFORTABLY, HR 66, BP 159/72. R GROIN SOFT, NO BLEEDING OR S/S HEMATOMA NOTED. CALL LIGHT IN REACH.
--- NOTE | 2019-04-21 13:17 | NUR ---
PT PLACED ON BEDPAN, VOIDED 100CC CLEAR YELLOW URINE. R GROIN SOFT, DRESSING CDI NO S/S HEMATOMA NOTED. VSS CALL LIGHT IN REACH. PT DENIES OTHER NEEDS OR DISCOMFORT.
--- NOTE | 2019-04-21 13:45 | NUR ---
PT RESTING COMFORTABLY, DENIES PAIN OR NEEDS. VSS. R GROIN SOFT, DRESSING CDI NO S/S HEMATOMA NOTED. CALL LIGHT IN REACH
--- NOTE | 2019-04-21 14:00 | NUR ---
R GROIN W/O BLEEDING OR S/S HEMATOMA. HOB ELEVATED, COFFEE SERVED. PT DOESN'T WANT SANDWICH AT THIS TIME. VSS. CALL LIGHT IN REACH.
--- NOTE | 2019-04-21 14:30 | NUR ---
PT SITTING UP VISITNG W FAMILY, DENIES PAIN OR NEEDS. R GROIN SOFT, DRESSING REMAINS CDI NO S/S HEMATOMA. CALL LIGHT IN REACH
--- NOTE | 2019-04-21 14:50 | NUR ---
DISCHARGE INSTRUCTIONS REVIEWED W PT AND DAUGHTER, BOTH VERBALIZED UNDERSTANDING. IV REMOVED W CATH INTACT, MONITORS AND O2 REMOVED. PT UP TO DRESS FOR DISCHARGE W ASIST FROM DAUGHTER.
--- NOTE | 2019-04-21 15:01 | NUR ---
PT AMBULATED TO BR, VOIDING W/O DIFFICULITY. PT THEN DISCHARGED VIA WC TO FAMILY WAITING IN PRIVATE VEHICLE. PT HAD ALL BELONGINGS AND DISCHARGE INFORMATION.
== END 2019-04-21 15:01 | disposition home or self-care (01) ==
LOC: D.CATH 06:59
PROVIDERS: ATTEND Internal Medicine Cardiovascular Disease
DX: I73.9 Peripheral vascular disease, unspecified (principal); I10 Essential (primary) hypertension; I25.10 Atherosclerotic heart disease of native coronary artery without angina pectoris; Z72.0 Tobacco use

== ENCOUNTER → 2019-10-12 09:53 | Outpatient (CLI) | payer MEDICARE ==
[2019-04-21 07:57] VITALS: BMI 21.4
== END | disposition home or self-care (01) ==
LOC: D.US 09-27 13:30
PROVIDERS: ATTEND Thoracic Surgery (Cardiothoracic Vascular Surgery)
DX: I65.23 Occlusion and stenosis of bilateral carotid arteries (principal)